=== PATIENT | female | born 1980 | race Caucasian/White ===

== ENCOUNTER 2016-09-07 15:56 | Emergency (ER) | payer SELFPAY ==
[2016-09-07 16:04] VITALS: BP 125/82; BMI 39.1
--- NOTE | 2016-09-07 17:29 | DR.GENAD ---
HPI - PCP Primary Care Physician: JEREMY - HPI Comment HPI Comment: PATIENT SAID SHE HAVE NOT HAD BM FOR 3 WEEKS.HISTORY BOWEL OBSTRUCTION. NO FEVER. MUSCLE ACHES. - Complaint/Symptoms Chief Complaint Doctors Comments: ABDOMIINAL PAIN, NAUSEA AND VOMITING WITH CONSTIPATION FOR FEW RAY[place]D. WORSE TODAY AND ALSO HAVE SEVERE MIGRAINE HEADACHE THAT STARTED TODAY. Chief Complaint:: MIGRAINES, NO BOWEL MOVEMENT IN 2 WEEKS, HURTING ALL OVER AND STOMACH HURTING - Nurses notes reviewed Nurses Notes Review: Yes - Source History Provided: Patient - Mode of Arrival Mode of Arrival: Ambulatory - Timing Onset of Chief Complaint: 08/24/16 Came on: Suddenly - Duration Duration: Constant Duration: Days - Severity Severity: Moderate PMH - PMH Past Medical History: Yes Past Medical History: Depression, Diabetes Past Medical History Comment: CHRONIC CONSTIPATION Past Surgical History: Yes Surgical History: Appendectomy, Cholecystectomy, 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 - Family History History of Family Medical Conditions: Yes Family Medical History: Diabetes Mellitus, [place], Hypertension - Social History Does any household member use tobacco: Yes Alcohol Use: None Do you use any recreational Drugs:: No Lives With: Family Lives Where: Home - infectious screening In the last 2 months have you had wt loss of >10#?: NO Have you had fever, night sweats or hemotysis?: No Have you traveled outside the country in the last 6 months?: No Isolation: Standard ROS - Review of Systems Constitutional: Weakness, Fatigue, Loss of Appetite. negative: Chills, Fever Eyes: No Symptoms Reported. negative: Eye Pain, Discharge ENTM: No Symptoms Reported. negative: Ear Pain, Nose Discharge, Nose Congestion , Throat Pain Respiratoy: No Symptoms Reported. negative: Productive Cough, Non-Productive Cough, Short of Breath, Wheezing, Hemoptysis Cardiovascular: negative: Chest Pain, Edema, Palpitations Gastrointestinal/Abdominal: Abdominal Pain, Constipation, Nausea, Vomiting. negative: Diarrhea Genitourinary: No Symptoms Reported. negative: Dysuria, Frequency, Hematuria Neurological: Headache, Weakness. negative: Dizziness Musculoskeletal: Muscle Pain Integumentary: No Symptoms Reported Hematologic/Lymphatic: No Symptoms Reported Endocrine: No Symptoms Reported All Other Systems: Reviewed and Negative PE - Vital Signs Vitals: Temperature 97.5 F Pulse Rate 108 Respiratory Rate 20 Blood Pressure 125/82 O2 Sat by Pulse Oximetry 96 - General Limitations: No Limitations General Appearance: Alert - Head Head Exam: Normal Inspection - Eyes Eye exam: Normal Appearance - ENT ENT Exam: Normal Oropharynx, Normal External Ear Exam, TM's Normal Bilaterally External Ear Exam: Normal External Inspection TM/Canal Exam: Bilateral Normal Nose Exam: Normal Nose Exam Mouth Exam: Normal Inspection Throat Exam: Normal Inspection - Neck Neck Exam: Trachea Midline. negative: Tenderness, Meningismus, Lymphadenopathy - Chest Chest Inspection: Symmetric Chest Wall Rise - Respiratory Respiratory Exam: Normal Lung Sounds Bilat Respiratory Exam: Bilateral Clear to Auscultation - Cardiovascular Cardiovascular Exam: Regular Rate, Normal Rhythm, Normal Heart Sounds - Abdominal Exam Abdominal Exam: Normal Bowel Sounds, Soft, Tenderness Abdominal Tenderness: Diffuse, Moderate - Extremities Extremities Exam: Normal Inspection - Back Back Exam: Normal Inspection - Neurologic Neurological Exam: Alert, Oriented X3, CN II-XII Intact, Reflexes Normal. negative: Motor Sensory Deficit - Psychiatric Psychiatric Exam: Normal Affect, Normal Mood - Skin Skin Exam: Normal Color MDM - Additional Information Additional Information Obtained From: Family - Differential Diagnosis Differential Diagnosis: ABDOMINAL PAIN, BOWEL OBSTRUCTION, MIGRAINE HEADACHE, CONSTIPATION Course - Treatment Treatment: SEE ORDERS. IM MED FOR HEADACHE, IMPROVE. - Education/Counseling Education/Counseling: Patient, Education Educated On: Treatment, Diagnosis, Needs for Follow Up ROR - Labs Reviewed Laboratory Results Reviewed?: Yes Result Diagrams: 09/07/16 17:48 09/07/16 17:48 Laboratory: WBC 8.0 X10^3/uL (3.6-10.0) 09/07/16 17:48 RBC 4.57 X10^6/uL (3.5-5.4) 09/07/16 17:48 Hgb 13.1 g/dL (12.0-16.0) 09/07/16 17:48 Hct 39.3 % (36.0-47.0) 09/07/16 17:48 MCV 85.9 fL (80.0-100.0) 09/07/16 17:48 MCH 28.6 pg (27.0-34.0) 09/07/16 17:48 MCHC 33.3 g/dL (33.0-35.0) 09/07/16 17:48 RDW 13.6 % (11.6-16.5) 09/07/16 17:48 Plt Count 255 X10^3/uL (150.0-450.0) 09/07/16 17:48 MPV 9.5 fL (7.4-11.0) 09/07/16 17:48 Neut % 80.6 % (42.0-75.0) H 09/07/16 17:48 Lymph % 14.5 % (21.0-51.0) L 09/07/16 17:48 [place] % 4.3 % (0.0-13.0) 09/07/16 17:48 Eos % 0.3 % (0.9-2.9) L 09/07/16 17:48 Baso % 0.3 % (0.2-1.0) 09/07/16 17:48 Neut # 6.5 x10^3/uL (2.2-4.8) H 09/07/16 17:48 Lymph # 1.2 X10^3/uL (1.3-2.9) L 09/07/16 17:48 [place] # 0.3 x10^3/uL (0.3-0.8) 09/07/16 17:48 Eos # 0.0 x10^3/uL (0.0-0.2) 09/07/16 17:48 Baso # 0.0 X10^3/uL (0.0-0.1) 09/07/16 17:48 Absolute Nucleated RBC 0.0 /100WBC 09/07/16 17:48 Sodium 142 mmol/L (136-145) 09/07/16 17:48 Corrected Sodium 142 mmol/L (136-145) 09/07/16 17:48 Potassium 4.5 mmol/L (3.5-5.1) 09/07/16 17:48 Chloride 105 mmol/L (98-107) 09/07/16 17:48 Carbon Dioxide 25.2 mmol/L (21-32) 09/07/16 17:48 BUN 13 mg/dL (7-18) 09/07/16 17:48 Creatinine 1.06 mg/dL (0.55-1.02) H 09/07/16 17:48 Est GFR (MDRD) Af Amer > 60 (>60) 09/07/16 17:48 Est GFR (MDRD) Non-Af > 60 (>60) 09/07/16 17:48 Glucose 119 mg/dL (65-99) H 09/07/16 17:48 Calcium 9.6 mg/dL (8.5-10.1) 09/07/16 17:48 Corrected Calcium TNP 09/07/16 17:48 Total Bilirubin 0.20 mg/dL (0.2-1.0) 09/07/16 17:48 AST 48 Units/L (15-37) H 09/07/16 17:48 ALT 80 Units/L (12-78) H 09/07/16 17:48 Alkaline Phosphatase 90 Units/L (46-116) 09/07/16 17:48 Total Protein 8.4 g/dL (6.4-8.2) H 09/07/16 17:48 Albumin 3.9 g/dL (3.4-5.0) 09/07/16 17:48 Globulin 4.5 g/dL (2.5-4.5) 09/07/16 17:48 Albumin/Globulin Ratio 0.9 Ratio (1.1-2.1) L 09/07/16 17:48 Amylase 65 Units/L (25-115) 09/07/16 17:48 Lipase 187 Units/L (73-393) 09/07/16 17:48 Specimen Type Clean catch urine 09/07/16 17:55 Urine Color Yellow (YELLOW) 09/07/16 17:55 Urine Appearance Clear (CLEAR) 09/07/16 17:55 Urine pH 9.0 (5.0 - 8.0) 09/07/16 17:55 Ur Specific [place] 1.015 (1.000-1.030) 09/07/16 17:55 Urine Protein Negative (NEGATIVE) 09/07/16 17:55 Urine Glucose (UA) Negative (NEGATIVE) 09/07/16 17:55 Urine Ketones Negative (NEGATIVE) 09/07/16 17:55 Urine Occult Blood Negative (NEGATIVE) 09/07/16 17:55 Urine Nitrite Negative (NEGATIVE) 09/07/16 17:55 Urine Bilirubin Negative (NEGATIVE) 09/07/16 17:55 Urine Urobilinogen Normal (NORMAL) 09/07/16 17:55 Ur Leukocyte Esterase 1+ (NEGATIVE) 09/07/16 17:55 Urine RBC 0-2 /HPF (NEGATIVE) 09/07/16 17:55 Urine WBC 0-2 /HPF (NEGATIVE) 09/07/16 17:55 Ur Squamous Epith Cells Negative /HPF (NEGATIVE) 09/07/16 17:55 Urine Bacteria Negative /HPF (NEGATIVE) 09/07/16 17:55 Ur Culture Indicated? No/not indicated 09/07/16 17:55 - XRAY XRAY Interpreted by: Radiologist XRAY Findings: REPORT DISCUSSWITH PATIENT. - Diagnosis Discharge Problem: Migraine headache - Discharge Plan Condition: Stable Prescriptions: [id number] [Fioricet Tab] 1 tab PO Q8H PRN #20 tab PRN Reason: Migraine Headache Magnesium Citrate [Magnesium Citrate 1.745 gm/30Ml] 1 levy PO ONCE #1 bottle Ondansetron HCl [Zofran Tab 4 mg] 4 mg PO Q8H PRN #12 tab PRN Reason: Nausea/Vomiting - Follow ups/Referrals Follow ups/Referrals: Timoteo Tello [Primary Care Provider] - 3 days - Instructions Instructions: Migraine Headache, Constipation, Adult, [id number], Abdominal Pain, Adult, [id number] Additional Instructions: RETURN TO ED IF WORSE,
[2016-09-07] MEDS ORDERED: ZOFRAN INJ 4 MG VIAL IM ONE (17:38)
[2016-09-07] MEDS ORDERED: DEMEROL INJ IM ONE (17:38)
[2016-09-07] MEDS ORDERED: DEMEROL INJ ONE (17:53)
[2016-09-07] MEDS ORDERED: ZOFRAN INJ 4 MG VIAL ONE (17:53)
[2016-09-07 18:01] LABS: BILIRUBIN,URINE NEGATIVE (NEGATIVE); BLOOD/HEMOGLOBIN,URINE NEGATIVE (NEGATIVE); GLUCOSE, URINE NEGATIVE (NEGATIVE); KETONES,URINE NEGATIVE (NEGATIVE); LEUKOCYTE ESTERASE ,URINE 1+ (NEGATIVE); NITRITES,URINE NEGATIVE (NEGATIVE); PROTEIN,URINE NEGATIVE (NEGATIVE); UROBILINOGEN,URINE NORMAL (NORMAL)
[2016-09-07 18:03] LABS: BASOPHILS % (AUTO) 0.3 % (0.2-1.0); EOSINOPHILS % (AUTO) 0.3 % (0.9-2.9); HEMATOCRIT 39.3 % (36.0-47.0); HEMOGLOBIN 13.1 g/dL (12.0-16.0); LYMPHOCYTES # (AUTO) 1.2 X10^3/uL (1.3-2.9); LYMPHOCYTES % (AUTO) 14.5 % (21.0-51.0); MEAN CORPUSCULAR HEMOGLOBIN 28.6 pg (27.0-34.0); MEAN CORPUSCULAR HGB CONC 33.3 g/dL (33.0-35.0); MEAN CORPUSCULAR VOLUME 85.9 fL (80.0-100.0); MEAN PLATELET VOLUME 9.5 fL (7.4-11.0); MONOCYTES # (AUTO) 0.3 x10^3/uL (0.3-0.8); MONOCYTES % (AUTO) 4.3 % (0.0-13.0); NEUTROPHILS # (AUTO) 6.5 x10^3/uL (2.2-4.8); NEUTROPHILS % (AUTO) 80.6 % (42.0-75.0); PLATELET COUNT 255 X10^3/uL (150.0-450.0); RED BLOOD COUNT 4.57 X10^6/uL (3.5-5.4); RED CELL DISTRIBUTION WIDTH 13.6 % (11.6-16.5)
[2016-09-07 18:09] LABS: APPEARANCE,URINE CLEAR (CLEAR); BACTERIA,URINE NEGATIVE /HPF (NEGATIVE); COLOR,URINE YELLOW (YELLOW); RBC,URINE 0-2 /HPF (NEGATIVE); SQUAMOUS EPITHELIAL CELL,UR NEGATIVE /HPF (NEGATIVE)
[2016-09-07 18:10] LABS: ALANINE AMINOTRANSFERASE 80 Units/L (12-78); ALBUMIN 3.9 g/dL (3.4-5.0); ALKALINE PHOSPHATASE 90 Units/L (46-116); AMYLASE 65 Units/L (25-115); ASPARTATE AMINO TRANSFERASE 48 Units/L (15-37); BLOOD UREA NITROGEN 13 mg/dL (7-18); CALCIUM 9.6 mg/dL (8.5-10.1); CARBON DIOXIDE 25.2 mmol/L (21-32); CHLORIDE 105 mmol/L (98-107); COR NA(FOR HYPERGLY) 142 mmol/L (136-145); CREATININE 1.06 mg/dL (0.55-1.02); GLUCOSE 119 mg/dL (65-99); LIPASE 187 Units/L (73-393); SODIUM 142 mmol/L (136-145); TOTAL PROTEIN 8.4 g/dL (6.4-8.2); eGFR BLACK RACES > 60 (>60); eGFR NON BLACK RACES > 60 (>60)
--- NOTE | 2016-09-07 18:58 | CT ---
CT abdomen and pelvis without contrast Indication: Headache. Abdominal pain with vomiting and nausea. Severe constipation. Technique: Helical images through the abdomen and pelvis without contrast. Coronal and sagittal refo rmats provided. Findings: Review of bone windows shows no destructive osseous lesion. Limited images through lower chest shows basilar scar without other acute abnormality. Abdomen: The liver is mildly enlarged without large lesion seen. Gallbladder is absent. The spleen, pancreas, adrenal glands, stomach and small bowel are within normal limits for noncontrast study. Ki dneys show no stone or hydroureteronephrosis. Vasculature is free of plaque. There is moderate stool throughout the colon suggesting constipation. No acute inflammatory change seen. The appendix is no t visualized, absent by history. Pelvis: Urinary bladder and rectum are normal. Uterus is absent. No adnexal region lesion seen. Impression: 1. Moderate to large stool in the colon, compatible with constipation. 2. No other acute abnormality identified. Reported By:
== END 2016-09-07 19:24 | disposition home or self-care (01) ==
LOC: ER 16:17
DX: G43.909 Migraine, unspecified, not intractable, without status migrainosus (principal); R10.84 Generalized abdominal pain
CPT/HCPCS: 36415; 74176; 80053; 81001; 82150; 83690; 85025; 96372; 99283; J2175; J2405

== ENCOUNTER 2016-09-09 19:06 | Emergency (ER) | payer SELFPAY ==
[2016-09-09 19:15] VITALS: BP 110/78; BMI 39.6
--- NOTE | 2016-09-09 19:25 | DR.GENAD ---
HPI - PCP Primary Care Physician: Omer - HPI Comment HPI Comment: SEEN IN ED 2 DAYS AGO AND HAD WORK UP FOR ABDOMINAL - Complaint/Symptoms Chief Complaint Doctors Comments: CHEST PAIN, TACHYCARDIA, HEADACHE AND WEAKNESS SINCE . Chief Complaint:: " I was just hear on my heart rate been high today and i feel weak got a headache and hurting in chest." - Nurses notes reviewed Nurses Notes Review: Yes - Source History Provided: Patient - Mode of Arrival Mode of Arrival: Ambulatory - Timing Onset of Chief Complaint: 09/06/16 Came on: Suddenly - Duration Duration: Constant Duration: Days - Severity Severity: Moderate PMH - PMH Past Medical History: Yes Past Medical History: Depression, Diabetes, Hypertension Past Surgical History: Yes Surgical History: Appendectomy, Cholecystectomy, 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 - Family History History of Family Medical Conditions: Yes Family Medical History: Diabetes Mellitus, [place], Hypertension - Social History Alcohol Use: None Do you use any recreational Drugs:: No Lives With: Family Lives Where: Home - infectious screening Have you traveled outside the country in the last 6 months?: No ROS - Review of Systems Constitutional: No Symptoms Reported, Weakness, Fatigue, Loss of Appetite. negative: See HPI, Fever Eyes: No Symptoms Reported. negative: Eye Pain, Discharge ENTM: No Symptoms Reported. negative: Ear Pain, Nose Discharge, Nose Congestion , Throat Pain Respiratoy: No Symptoms Reported. negative: Productive Cough, Non-Productive Cough, Wheezing, Hemoptysis Cardiovascular: No Symptoms Reported, Chest Pain, Palpitations. negative: Edema , Syncope Gastrointestinal/Abdominal: Abdominal Pain, Constipation. negative: Diarrhea, Nausea, Vomiting Genitourinary: No Symptoms Reported. negative: Dysuria, Frequency, Hematuria Neurological: Headache, Weakness, Dizziness Musculoskeletal: Muscle Pain Integumentary: No Symptoms Reported Hematologic/Lymphatic: No Symptoms Reported Endocrine: No Symptoms Reported All Other Systems: Reviewed and Negative PE - Vital Signs Vitals: Temperature 98.4 F Pulse Rate 111 Respiratory Rate 18 Blood Pressure 110/78 O2 Sat by Pulse Oximetry 97 - General Limitations: No Limitations General Appearance: Alert - Head Head Exam: Normal Inspection - Eyes Eye exam: Normal Appearance - ENT ENT Exam: Normal External Ear Exam External Ear Exam: Normal External Inspection TM/Canal Exam: Bilateral Normal Nose Exam: Normal Nose Exam Mouth Exam: Normal Inspection Throat Exam: Normal Inspection - Neck Neck Exam: Trachea Midline - Chest Chest Inspection: Symmetric Chest Wall Rise - Respiratory Respiratory Exam: Normal Lung Sounds Bilat Respiratory Exam: Bilateral Clear to Auscultation - Cardiovascular Cardiovascular Exam: Normal Rhythm, Tachycardia, Normal Heart Sounds - Abdominal Exam Abdominal Exam: Normal Bowel Sounds, Soft, Tenderness Abdominal Tenderness: Diffuse, Mild - Extremities Extremities Exam: Normal Inspection - Back Back Exam: Normal Inspection - Neurologic Neurological Exam: Alert, Oriented X3 - Psychiatric Psychiatric Exam: Normal Affect, Normal Mood - Skin Skin Exam: Normal Color [facility] - Additional Information Additional Information Obtained From: Family - Differential Diagnosis Differential Diagnosis: TACHYCARDIA, ABDOMINAL PAIN/CONSTIPATION, HEADACHE, CHEST PAIN Course - Treatment Treatment: SEE ORDERS - Education/Counseling Education/Counseling: Patient, Education Educated On: Treatment, Diagnosis, Needs for Follow Up ROR - Labs Reviewed Laboratory Results Reviewed?: Yes Result Diagrams: 09/09/16 19:45 09/09/16 19:45 Laboratory: WBC 7.0 X10^3/uL (3.6-10.0) 09/09/16 19:45 RBC 4.19 X10^6/uL (3.5-5.4) 09/09/16 19:45 Hgb 12.3 g/dL (12.0-16.0) 09/09/16 19:45 Hct 35.6 % (36.0-47.0) L 09/09/16 19:45 MCV 84.9 fL (80.0-100.0) 09/09/16 19:45 MCH 29.2 pg (27.0-34.0) 09/09/16 19:45 MCHC 34.4 g/dL (33.0-35.0) 09/09/16 19:45 RDW 13.2 % (11.6-16.5) 09/09/16 19:45 Plt Count 232 X10^3/uL (150.0-450.0) 09/09/16 19:45 MPV 9.2 fL (7.4-11.0) 09/09/16 19:45 Neut % 42.8 % (42.0-75.0) 09/09/16 19:45 Lymph % 37.9 % (21.0-51.0) 09/09/16 19:45 [place] % 14.4 % (0.0-13.0) H 09/09/16 19:45 Eos % 4.3 % (0.9-2.9) H 09/09/16 19:45 Baso % 0.6 % (0.2-1.0) 09/09/16 19:45 Neut # 3.0 x10^3/uL (2.2-4.8) 09/09/16 19:45 Lymph # 2.6 X10^3/uL (1.3-2.9) 09/09/16 19:45 [place] # 1.0 x10^3/uL (0.3-0.8) H 09/09/16 19:45 Eos # 0.3 x10^3/uL (0.0-0.2) H 09/09/16 19:45 Baso # 0.0 X10^3/uL (0.0-0.1) 09/09/16 19:45 Absolute Nucleated RBC 0.1 /100WBC 09/09/16 19:45 D-Dimer 501 ng/mL (0-400) H* 09/09/16 19:45 Sodium 138 mmol/L (136-145) 09/09/16 19:45 Corrected Sodium TNP 09/09/16 19:45 Potassium 4.4 mmol/L (3.5-5.1) 09/09/16 19:45 Chloride 103 mmol/L (98-107) 09/09/16 19:45 Carbon Dioxide 25.7 mmol/L (21-32) 09/09/16 19:45 BUN 17 mg/dL (7-18) 09/09/16 19:45 Creatinine 0.96 mg/dL (0.55-1.02) 09/09/16 19:45 Est GFR (MDRD) Af Amer > 60 (>60) 09/09/16 19:45 Est GFR (MDRD) Non-Af > 60 (>60) 09/09/16 19:45 Glucose 107 mg/dL (65-99) H 09/09/16 19:45 Calcium 9.3 mg/dL (8.5-10.1) 09/09/16 19:45 Corrected Calcium TNP 09/09/16 19:45 Total Bilirubin 0.20 mg/dL (0.2-1.0) 09/09/16 19:45 AST 100 Units/L (15-37) H 09/09/16 19:45 ALT 129 Units/L (12-78) H 09/09/16 19:45 Alkaline Phosphatase 96 Units/L (46-116) 09/09/16 19:45 Creatine Kinase 97 Units/L (26-192) 09/09/16 19:45 CK-MB (CK-2) < 1.0 ng/mL (0-4.0) 09/09/16 19:45 CK/CKMB % Calc 1.0 % (<4) 09/09/16 19:45 Troponin I < 0.02 ng/mL (0-1.5) 09/09/16 19:45 B-Natriuretic Peptide < 5.0 pg/mL (0-79) 09/09/16 19:45 Total Protein 8.1 g/dL (6.4-8.2) 09/09/16 19:45 Albumin 3.8 g/dL (3.4-5.0) 09/09/16 19:45 Globulin 4.3 g/dL (2.5-4.5) 09/09/16 19:45 Albumin/Globulin Ratio 0.9 Ratio (1.1-2.1) L 09/09/16 19:45 Specimen Type Clean catch urine 09/09/16 19:49 Urine Color Straw (YELLOW) 09/09/16 19:49 Urine Appearance Clear (CLEAR) 09/09/16 19:49 Urine pH 7.0 (5.0 - 8.0) 09/09/16 19:49 Ur Specific [place] 1.005 (1.000-1.030) 09/09/16 19:49 Urine Protein Negative (NEGATIVE) 09/09/16 19:49 Urine Glucose (UA) Negative (NEGATIVE) 09/09/16 19:49 Urine Ketones Negative (NEGATIVE) 09/09/16 19:49 Urine Occult Blood Negative (NEGATIVE) 09/09/16 19:49 Urine Nitrite Negative (NEGATIVE) 09/09/16 19:49 Urine Bilirubin Negative (NEGATIVE) 09/09/16 19:49 Urine Urobilinogen Normal (NORMAL) 09/09/16 19:49 Ur Leukocyte Esterase Negative (NEGATIVE) 09/09/16 19:49 Urine RBC 0-1 /HPF (NEGATIVE) 09/09/16 19:49 Urine WBC 1-3 /HPF (NEGATIVE) 09/09/16 19:49 Ur Squamous Epith Cells Rare /HPF (NEGATIVE) 09/09/16 19:49 Urine Bacteria Negative /HPF (NEGATIVE) 09/09/16 19:49 Ur Culture Indicated? No/not indicated 09/09/16 19:49 - XRAY XRAY Interpreted by: Radiologist XRAY Findings: REPORT DISCUSS WITH PATIENT. - EKG Rhythm: ST (EKGNOTED) - Diagnosis Discharge Problem: Tachycardia Chest pain Qualifiers: Chest pain type: precordial pain Qualified Code(s): R07.2 - Precordial pain Headache Qualifiers: Headache type: paroxysmal hemicrania Headache chronicity pattern: unspecified pattern Intractability: intractable Qualified Code(s): G44.031 - Episodic paroxysmal hemicrania, intractable Abdominal pain Qualifiers: Abdominal location: generalized Qualified Code(s): R10.84 - Generalized abdominal pain Constipation Qualifiers: Constipation type: unspecified constipation type Qualified Code(s): K59.00 - Constipation, unspecified - Discharge Plan Disposition: HOME, SELF-CARE Condition: Stable - Follow ups/Referrals Follow ups/Referrals: Timoteo Tello [Primary Care Provider] - 09/11/16 - Instructions Instructions: Chest Pain Observation, Migraine Headache Additional Instructions: RETURN TO ED IF WORSE. CONTINUE WITH MEDS AT HOME FOR HEADACHE.
[2016-09-09 19:59] LABS: BASOPHILS % (AUTO) 0.6 % (0.2-1.0); EOSINOPHILS # (AUTO) 0.3 x10^3/uL (0.0-0.2); EOSINOPHILS % (AUTO) 4.3 % (0.9-2.9); HEMATOCRIT 35.6 % (36.0-47.0); HEMOGLOBIN 12.3 g/dL (12.0-16.0); LYMPHOCYTES # (AUTO) 2.6 X10^3/uL (1.3-2.9); LYMPHOCYTES % (AUTO) 37.9 % (21.0-51.0); MEAN CORPUSCULAR HEMOGLOBIN 29.2 pg (27.0-34.0); MEAN CORPUSCULAR HGB CONC 34.4 g/dL (33.0-35.0); MEAN CORPUSCULAR VOLUME 84.9 fL (80.0-100.0); MEAN PLATELET VOLUME 9.2 fL (7.4-11.0); MONOCYTES % (AUTO) 14.4 % (0.0-13.0); NEUTROPHILS % (AUTO) 42.8 % (42.0-75.0); PLATELET COUNT 232 X10^3/uL (150.0-450.0); RED BLOOD COUNT 4.19 X10^6/uL (3.5-5.4); RED CELL DISTRIBUTION WIDTH 13.2 % (11.6-16.5)
[2016-09-09 20:00] LABS: BILIRUBIN,URINE NEGATIVE (NEGATIVE); BLOOD/HEMOGLOBIN,URINE NEGATIVE (NEGATIVE); GLUCOSE, URINE NEGATIVE (NEGATIVE); KETONES,URINE NEGATIVE (NEGATIVE); LEUKOCYTE ESTERASE ,URINE NEGATIVE (NEGATIVE); NITRITES,URINE NEGATIVE (NEGATIVE); PROTEIN,URINE NEGATIVE (NEGATIVE); UROBILINOGEN,URINE NORMAL (NORMAL)
[2016-09-09 20:01] LABS: APPEARANCE,URINE CLEAR (CLEAR); COLOR,URINE STRAW (YELLOW)
[2016-09-09 20:04] LABS: BACTERIA,URINE NEGATIVE /HPF (NEGATIVE); RBC,URINE 0-1 /HPF (NEGATIVE); SQUAMOUS EPITHELIAL CELL,UR RARE /HPF (NEGATIVE)
[2016-09-09 20:12] LABS: BLOOD UREA NITROGEN 17 mg/dL (7-18); CALCIUM 9.3 mg/dL (8.5-10.1); CARBON DIOXIDE 25.7 mmol/L (21-32); CHLORIDE 103 mmol/L (98-107); CREATININE 0.96 mg/dL (0.55-1.02); GLUCOSE 107 mg/dL (65-99); SODIUM 138 mmol/L (136-145); TROPONIN I < 0.02 ng/mL (0-1.5); eGFR BLACK RACES > 60 (>60); eGFR NON BLACK RACES > 60 (>60)
[2016-09-09 20:15] LABS: ALANINE AMINOTRANSFERASE 129 Units/L (12-78); ALBUMIN 3.8 g/dL (3.4-5.0); ALKALINE PHOSPHATASE 96 Units/L (46-116); ASPARTATE AMINO TRANSFERASE 100 Units/L (15-37); CREATINE KINASE 97 Units/L (26-192); CREATINE KINASE MB < 1.0 ng/mL (0-4.0); TOTAL PROTEIN 8.1 g/dL (6.4-8.2)
[2016-09-09 20:18] LABS: B-TYPE NATRIURETIC PEPTIDE < 5.0 pg/mL (0-79)
[2016-09-09] MEDS ORDERED: ZOFRAN INJ 4 MG VIAL IVP ONE (20:51)
[2016-09-09] MEDS ORDERED: ZOFRAN INJ 4 MG VIAL ONE (20:56)
[2016-09-09] MEDS ORDERED: TORADOL 30 MG VIAL IVP ONE (20:57)
[2016-09-09] MEDS ORDERED: TORADOL 30 MG VIAL ONE (20:57)
[2016-09-09] MEDS ORDERED: NS 100 ML IV 100 ML IV ONE (21:03)
--- NOTE | 2016-09-09 21:19 | RAD ---
HISTORY: Chest pain Study: Single view of the chest. Comparison: None. Findings: The cardiomediastinal silhouette is normal. No focal consolidations, pleural effusions or pneumothor ax. Osseous structures demonstrate no acute abnormality. IMPRESSION: 1. No acute cardiopulmonary process. Reported By:
--- NOTE | 2016-09-09 21:44 | CT ---
EXAM: CTA CHEST WITH CONTRAST INDICATION: Chest pain COMPARISION: No priors for comparison TECHNIQUE: Spiral CT of the chest was performed with contrast. Thin reconstructions in the axial and para-coron al planes were obtained. The patient received intravenous contrast without adverse reaction. FINDINGS: Areas of atelectasis and or scarring noted in both lungs. No mass or consolidation. The heart size i s within normal limits. There is a small hiatal hernia. No mediastinal or hilar mass or adenopathy. No aortic aneurysm or dissection. No pulmonary embolism. The regional skeleton is intact. IMPRESSION: There is a small hiatal hernia. Areas of scarring and or atelectasis noted in both lungs. No pulmona ry embolism. Reported By:
== END 2016-09-09 22:05 | disposition home or self-care (01) ==
LOC: ER 19:06
DX: R00.0 Tachycardia, unspecified (principal); R07.89 Other chest pain; R07.2 Precordial pain; G44.031 Episodic paroxysmal hemicrania, intractable; R10.84 Generalized abdominal pain; K59.09 Other constipation
CPT/HCPCS: 36415; 71010; 71275; 80053; 81001; 82550; 82553; 83880; 84484; 85025; 85378; 93005; 93010; 96365; 96374; 96375; 99283; A4222; J1885; J2405

== ENCOUNTER 2016-09-11 08:47 | Emergency (ER) | payer SELFPAY ==
[2016-09-11 08:51] VITALS: BP 129/83; BMI 39.6
[2016-09-11] MEDS ORDERED: PHENERGAN INJ 25 MG IM ONE (09:20)
[2016-09-11] MEDS ORDERED: DEMEROL INJ IM ONE (09:20)
--- NOTE | 2016-09-11 09:21 | DR.GENAD ---
HPI - PCP Primary Care Physician: ROCÍO - HPI Comment HPI Comment: HERE IN ED SEVERAL TIMES FOR SIMILAR SYMTOMS. NOT GETTING BETTER. TOOK MAGNESIUM CITRATE TWICE AND ENEMA WITHOUT RESPONSE. STILL CONSTIPATED. - Complaint/Symptoms Chief Complaint Doctors Comments: GENERALIZE WEAKNESS, HEADACHE, TACHYCARDIA AND CONSTIPATION FOR SEVERAL DAYS. NOT IMPROVING. GLUCOSE 200 THIS AM. Chief Complaint:: PT. C/O HEART RATE BEING HIGH WELL HER BLOOD SUGAR. PT. STATES HER HEART RATE WAS 130 AT HOME AND BLOOD SUGAR WAS 200. PT. ALSO C/O GENERALIZED PAIN, HEADACHE, AND WEAKNESS. PT. STATES SHE STILL HAS NOT HAD A GOOD BOWEL MOVEMENT EVEN AFTER TAKING MAG. CITRATE, ENEMAS, AND SUPPOSITORIES. 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, 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 - Family History History of Family Medical Conditions: Yes Family Medical History: Diabetes Mellitus, [place], Hypertension - Social History Does patient currently use any type of tobacco product: No Have you used tobacco products in the last 12 months: No Type of Tobacco Use: None Does any household member use tobacco: No Alcohol Use: None Do you use any recreational Drugs:: No Lives With: Spouse Lives Where: Home - infectious screening In the last 2 months have you had wt loss of >10#?: NO Have you had fever, night sweats or hemotysis?: No Have you traveled outside the country in the last 6 months?: No Isolation: Standard ROS - Review of Systems Constitutional: Weakness, Fatigue. negative: Chills, Fever Eyes: No Symptoms Reported ENTM: No Symptoms Reported Respiratoy: Short of Breath. negative: Productive Cough, Non-Productive Cough, Wheezing, Hemoptysis Cardiovascular: Palpitations Gastrointestinal/Abdominal: Abdominal Pain, Nausea Neurological: Headache, Weakness Musculoskeletal: No Symptoms Reported Integumentary: No Symptoms Reported Hematologic/Lymphatic: No Symptoms Reported Endocrine: No Symptoms Reported All Other Systems: Reviewed and Negative PE - Vital Signs Vitals: Temperature 98.2 F Pulse Rate 125 Respiratory Rate 18 Blood Pressure 129/83 O2 Sat by Pulse Oximetry 99 - General Limitations: No Limitations General Appearance: Alert - Head Head Exam: Normal Inspection - Eyes Eye exam: Normal Appearance - ENT ENT Exam: Normal External Ear Exam External Ear Exam: Normal External Inspection TM/Canal Exam: Bilateral Normal Nose Exam: Normal Nose Exam Mouth Exam: Normal Inspection Throat Exam: Normal Inspection - Neck Neck Exam: Trachea Midline - Chest Chest Inspection: Symmetric Chest Wall Rise - Respiratory Respiratory Exam: Normal Lung Sounds Bilat Respiratory Exam: Bilateral Clear to Auscultation - Cardiovascular Cardiovascular Exam: Regular Rate, Normal Rhythm, Normal Heart Sounds - Abdominal Exam Abdominal Exam: Normal Bowel Sounds, Soft, Tenderness Abdominal Tenderness: Diffuse, Mild - Extremities Extremities Exam: Normal Inspection - Back Back Exam: Normal Inspection - Neurologic Neurological Exam: Alert, Oriented X3 - Psychiatric Psychiatric Exam: Anxious - Skin Skin Exam: Normal Color MDM - Additional Information Additional Information Obtained From: Family - Differential Diagnosis Differential Diagnosis: TACHYCARDIA, ABDOMINAL PAIN, CONSTIPATION, MIGRAINE HEADACHE Course - Treatment Treatment: SEE ORDERS. MED FOR HEADACHE, PAIN IMPROVE. - Consultation Consultation Comments: DR. ALFORD WILL SEE PT SUNDAY. HE WANT COLACE, MOM AND MIRALAX PRISCRIBE. - Education/Counseling Education/Counseling: Patient, Family, Education Educated On: Treatment, Diagnosis, Needs for Follow Up ROR - Labs Reviewed Laboratory Results Reviewed?: Yes Result Diagrams: 09/11/16 09:26 09/11/16 09:26 Laboratory: WBC 12.2 X10^3/uL (3.6-10.0) H 09/11/16 09:26 RBC 4.02 X10^6/uL (3.5-5.4) 09/11/16 09:26 Hgb 11.3 g/dL (12.0-16.0) L 09/11/16 09:26 Hct 34.5 % (36.0-47.0) L 09/11/16 09:26 MCV 85.9 fL (80.0-100.0) 09/11/16 09:26 MCH 28.2 pg (27.0-34.0) 09/11/16 09:26 MCHC 32.9 g/dL (33.0-35.0) L 09/11/16 09:26 RDW 13.3 % (11.6-16.5) 09/11/16 09:26 Plt Count 210 X10^3/uL (150.0-450.0) 09/11/16 09: MPV 9.4 fL (7.4-11.0) 09/11/16 09: Neut % 76.2 % (42.0-75.0) H 09/11/16 09: Lymph % 8.6 % (21.0-51.0) L 09/11/16 09: [place] % 13.8 % (0.0-13.0) H 09/11/16 09:26 Eos % 1.1 % (0.9-2.9) 09/11/16 09: Baso % 0.3 % (0.2-1.0) 09/11/16: Neut # 9.3 x10^3/uL (2.2-4.8) H 09/11/16 09: Lymph # 1.0 X10^3/uL (1.3-2.9) L 09/11/16 09: [place] # 1.7 x10^3/uL (0.3-0.8) H 09/11/16 09: Eos # 0.1 x10^3/uL (0.0-0.2) 09/11/16 09: Baso # 0.0 X10^3/uL (0.0-0.1) 09/11/16 09: Absolute Nucleated RBC 0.0 /100WBC 09/11/16 09:26 Sodium 138 mmol/L (136-145) 09/11/16 09:26 Corrected Sodium TNP 09/11/16 09:26 Potassium 4.5 mmol/L (3.5-5.1) 09/11/16 09: Chloride 103 mmol/L (98-107) 09/11/16 09:26 Carbon Dioxide 26.9 mmol/L (21-32) 09/11/16 09:26 BUN 14 mg/dL (7-18) 09/11/16 09:26 Creatinine 0.98 mg/dL (0.55-1.02) 09/11/16 09:26 Est GFR (MDRD) Af Amer > 60 (>60) 09/11/16 09:26 Est GFR (MDRD) Non-Af > 60 (>60) 09/11/16 09:26 Glucose 94 mg/dL (65-99) 09/11/16 09:26 Calcium 9.6 mg/dL (8.5-10.1) 09/11/16 09:26 Corrected Calcium TNP 09/11/16 09:26 Total Bilirubin 0.30 mg/dL (0.2-1.0) 09/11/16 09:26 AST 125 Units/L (15-37) H 09/11/16 09:26 ALT 156 Units/L (12-78) H 09/11/16 09:26 Alkaline Phosphatase 99 Units/L (46-116) 09/11/16 09:26 Creatine Kinase 76 Units/L (26-192) 09/11/16 09:26 CK-MB (CK-2) < 1.0 ng/mL (0-4.0) 09/11/16 09:26 CK/CKMB % Calc 1.3 % (<4) 09/11/16 09:26 Troponin I < 0.02 ng/mL (0-1.5) 09/11/16 09:26 Total Protein 7.8 g/dL (6.4-8.2) 09/11/16 09:26 Albumin 3.6 g/dL (3.4-5.0) 09/11/16 09:26 Globulin 4.2 g/dL (2.5-4.5) 09/11/16 09:26 Albumin/Globulin Ratio 0.9 Ratio (1.1-2.1) L 09/11/16 09:26 TSH 3rd Generation 1.176 uIU/mL (0.358-3.74) 09/11/16 09:26 - XRAY XRAY Interpreted by: Radiologist XRAY Findings: REPORT DISCUSS WITH PATIENT. 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, intractable Constipation Qualifiers: Constipation type: unspecified constipation type Qualified Code(s): K59.00 - Constipation, unspecified Sinusitis Qualifiers: Sinusitis location: frontal Chronicity: unspecified Qualified Code(s): J32.1 - Chronic frontal sinusitis - Discharge Plan Disposition: 01 HOME, SELF-CARE Condition: Stable Prescriptions: Amoxicillin & Pot Clavulanate [AUGMENTIN TAB 875 mg/125 mg *] 1 tab PO BID #20 tab Docusate Sodium [Colace Cap 100 mg] 100 mg PO BID PRN #60 cap PRN Reason: Constipation Magnesium Hydroxide [Milk of Magnesia] 10 ml PO TID PRN #240 oral.susp PRN Reason: Polyethylene Glycol Pwd Ud [MIRALAX POWDER (17 GM DOSE) *] 17 gm PO DAILY PRN # 14 anuradha PRN Reason: Constipation - Follow ups/Referrals Follow ups/Referrals: Timoteo Alford [Primary Care Provider] - 3 days - Instructions Instructions: Migraine Headache, [id number], Weakness, [id number], Constipation, Adult, [id number], Sinus Tachycardia Additional Instructions: RETURN TO ED IF WORSE.
[2016-09-11] MEDS ORDERED: DEMEROL INJ ONE (09:24)
[2016-09-11] MEDS ORDERED: PHENERGAN INJ 25 MG ONE (09:24)
[2016-09-11 09:42] LABS: BASOPHILS % (AUTO) 0.3 % (0.2-1.0); EOSINOPHILS # (AUTO) 0.1 x10^3/uL (0.0-0.2); EOSINOPHILS % (AUTO) 1.1 % (0.9-2.9); HEMATOCRIT 34.5 % (36.0-47.0); HEMOGLOBIN 11.3 g/dL (12.0-16.0); LYMPHOCYTES % (AUTO) 8.6 % (21.0-51.0); MEAN CORPUSCULAR HEMOGLOBIN 28.2 pg (27.0-34.0); MEAN CORPUSCULAR HGB CONC 32.9 g/dL (33.0-35.0); MEAN CORPUSCULAR VOLUME 85.9 fL (80.0-100.0); MEAN PLATELET VOLUME 9.4 fL (7.4-11.0); MONOCYTES # (AUTO) 1.7 x10^3/uL (0.3-0.8); MONOCYTES % (AUTO) 13.8 % (0.0-13.0); NEUTROPHILS # (AUTO) 9.3 x10^3/uL (2.2-4.8); NEUTROPHILS % (AUTO) 76.2 % (42.0-75.0); PLATELET COUNT 210 X10^3/uL (150.0-450.0); RED BLOOD COUNT 4.02 X10^6/uL (3.5-5.4); RED CELL DISTRIBUTION WIDTH 13.3 % (11.6-16.5); WHITE BLOOD COUNT 12.2 X10^3/uL (3.6-10.0)
--- NOTE | 2016-09-11 09:59 | RAD ---
HISTORY: Chest pain Study: Chest one view Comparison: September 09, 2016 Findings: The trachea is midline. The cardiac silhouette is unremarkable. Lungs are free of acute infiltrate s. There is minimal perihilar subsegmental atelectasis on the right. No pleural effusions are identi fied.. The bony thorax is unremarkable. IMPRESSION: 1. No acute cardiopulmonary disease. Reported By:
--- NOTE | 2016-09-11 10:00 | RAD ---
HISTORY: Abdominal pain, constipation Study: KUB Comparison: None Findings: Evaluation of the abdomen demonstrates a normal bowel gas pattern. there is a large amount of stool present throughout the entire colon. No pathological soft tissue mass or calcification can be obser gabino. The bony structures are grossly intact. IMPRESSION: 1. No evidence for acute abdominal pathology identified. 2. Marked constipation Reported By:
[2016-09-11 10:01] LABS: BLOOD UREA NITROGEN 14 mg/dL (7-18); CALCIUM 9.6 mg/dL (8.5-10.1); CARBON DIOXIDE 26.9 mmol/L (21-32); CHLORIDE 103 mmol/L (98-107); CREATININE 0.98 mg/dL (0.55-1.02); GLUCOSE 94 mg/dL (65-99); SODIUM 138 mmol/L (136-145); TROPONIN I < 0.02 ng/mL (0-1.5); eGFR BLACK RACES > 60 (>60); eGFR NON BLACK RACES > 60 (>60)
[2016-09-11 10:05] LABS: ALANINE AMINOTRANSFERASE 156 Units/L (12-78); ALBUMIN 3.6 g/dL (3.4-5.0); ALKALINE PHOSPHATASE 99 Units/L (46-116); ASPARTATE AMINO TRANSFERASE 125 Units/L (15-37); CKMB % 1.3 % (<4); CREATINE KINASE 76 Units/L (26-192); CREATINE KINASE MB < 1.0 ng/mL (0-4.0); TOTAL PROTEIN 7.8 g/dL (6.4-8.2); TSH (3RD GENERATION) 1.176 uIU/mL (0.358-3.74)
--- NOTE | 2016-09-11 10:05 | CT ---
HISTORY: Headache. Study: CT brain without contrast Comparison: None. Technique: Multiple axial images of the brain were obtained from the skull base to the vertex without administr ation of IV contrast. Dose reduction techniques including Automated Exposure Control (AEC) and adju stment of mA and kV were utilized. Findings: No acute intraparenchymal hemorrhage or mass can be identified. No extra-axial fluid collections ar e seen. No alteration in the attenuation of the brain parenchyma can be identified to suggest acute or subacute ischemic change. The ventricular system is symmetric and nondilated. Mild/moderate mu cosal thickening of the right frontal sinus. Remaining paranasal sinuses and mastoid air cells are c lear. The osseous structures are intact. IMPRESSION: 1. No acute intracranial process can be identified. 2. Sinus disease as above. Reported By:
[2016-09-11] MEDS ORDERED: CHRONULAC PO ONE (10:32)
== END 2016-09-11 11:05 | disposition home or self-care (01) ==
LOC: ER 08:53
DX: G44.031 Episodic paroxysmal hemicrania, intractable (principal); K59.00 Constipation, unspecified; J32.1 Chronic frontal sinusitis; R00.0 Tachycardia, unspecified
CPT/HCPCS: 36415; 70450; 71010; 74000; 80053; 82550; 82553; 84443; 84484; 85025; 93005; 93010; 96372; 99283; J2175; J2550

== ENCOUNTER 2016-09-19 11:42 | Emergency (ER) | payer SELFPAY ==
[2016-09-19 11:50] VITALS: BP 108/76; BMI 39.1
--- NOTE | 2016-09-19 11:59 | DR.GENAD ---
HPI - PCP Primary Care Physician: nika - Complaint/Symptoms Chief Complaint:: " I have gotten worse with my broncotis since sunday and I think I have nemonia and marilin said if i didnt get no better he was going to put me in the hospital" - Nurses notes reviewed Nurses Notes Review: Yes - Source History Provided: Patient - Mode of Arrival Mode of Arrival: Ambulatory - Timing Onset of Chief Complaint: 09/15/16 Came on: Gradually - Duration How lon Duration: Days - Location Location: lungs - Severity Severity: Moderate - Modifying Factors Worsens:: exertion - Associated Signs and Symptoms Associated Signs and Symptoms: cough PMH - PMH Past Medical History: Yes Past Medical History: Anemia, Depression, Diabetes, Dyslipidemia, Headaches, Hypertension Past Surgical History: Yes Surgical History: Appendectomy, Cholecystectomy, 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, 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 - Family History History of Family Medical Conditions: Yes Family Medical History: Diabetes Mellitus, [place], Hypertension - Social History Does patient currently use any type of tobacco product: No Have you used tobacco products in the last 12 months: No Type of Tobacco Use: None Does any household member use tobacco: No Alcohol Use: None Do you use any recreational Drugs:: No Lives With: Spouse Lives Where: Home - infectious screening In the last 2 months have you had wt loss of >10#?: NO Have you had fever, night sweats or hemotysis?: No Have you traveled outside the country in the last 6 months?: No Isolation: Standard ROS - Review of Systems Constitutional: Fever Eyes: No Symptoms Reported ENTM: No Symptoms Reported Respiratoy: Non-Productive Cough Cardiovascular: No Symptoms Reported Gastrointestinal/Abdominal: No Symptoms Reported Genitourinary: No Symptoms Reported Neurological: No Symptoms Reported Musculoskeletal: No Symptoms Reported Integumentary: No Symptoms Reported Hematologic/Lymphatic: No Symptoms Reported Endocrine: No Symptoms Reported Psychiatric: Depression PE - Vital Signs Vitals: Temperature 97.9 F Pulse Rate 71 Respiratory Rate 18 Blood Pressure 108/76 O2 Sat by Pulse Oximetry 98 - General Limitations: No Limitations General Appearance: Alert, In No Apparent Distress - Head Head Exam: Normal Inspection - Eyes Eye exam: Normal Appearance, EOMI. negative: Scleral Icterus, Conjunctival Injection - ENT ENT Exam: Normal Exam, Normal Oropharynx External Ear Exam: Normal External Inspection Throat Exam: Normal Inspection. negative: Tonsillar Erythema - Neck Neck Exam: Normal Inspection, Full ROM, Trachea Midline - Chest Chest Inspection: Normal Inspection - Respiratory Respiratory Exam: Normal Lung Sounds Bilat. negative: Accessory Muscle Use, Respiratory Distress Respiratory Exam: Bilateral Clear to Auscultation - Cardiovascular Cardiovascular Exam: Regular Rate - Extremities Extremities Exam: Normal Inspection, Full ROM - Back Back Exam: Normal Inspection - Neurologic Neurological Exam: Alert, Oriented X3, CN II-XII Intact - Psychiatric Psychiatric Exam: Depressed - Skin Skin Exam: Intact, Normal Color ROR - Labs Reviewed Result Diagrams: 09/19/16 12:27 09/19/16 12:27 Laboratory: WBC 8.6 X10^3/uL (3.6-10.0) 09/19/16 12:27 RBC 4.29 X10^6/uL (3.5-5.4) 09/19/16 12:27 Hgb 12.3 g/dL (12.0-16.0) 09/19/16 12:27 Hct 36.7 % (36.0-47.0) 09/19/16 12:27 MCV 85.6 fL (80.0-100.0) 09/19/16 12:27 MCH 28.7 pg (27.0-34.0) 09/19/16 12:27 MCHC 33.5 g/dL (33.0-35.0) 09/19/16 12:27 RDW 14.0 % (11.6-16.5) 09/19/16 12:27 Plt Count 279 X10^3/uL (150.0-450.0) 09/19/16 12:27 Plt Count Comment Adequate (ADEQUATE) 09/19/16 12:27 MPV 8.5 fL (7.4-11.0) 09/19/16 12:27 Neut % 62.3 % (42.0-75.0) 09/19/16 12:27 Lymph % 24.5 % (21.0-51.0) 09/19/16 12:27 [place] % 9.6 % (0.0-13.0) 09/19/16 12:27 Eos % 3.1 % (0.9-2.9) H 09/19/16 12:27 Baso % 0.5 % (0.2-1.0) 09/19/16 12:27 Neut # 5.3 x10^3/uL (2.2-4.8) H 09/19/16 12:27 Lymph # 2.1 X10^3/uL (1.3-2.9) 09/19/16 12:27 [place] # 0.8 x10^3/uL (0.3-0.8) 09/19/16 12:27 Eos # 0.3 x10^3/uL (0.0-0.2) H 09/19/16 12:27 Baso # 0.0 X10^3/uL (0.0-0.1) 09/19/16 12:27 Absolute Nucleated RBC 0.0 /100WBC 09/19/16 12:27 Total Counted 100 09/19/16 12:27 Neutrophils % (Manual) 58 % (39-76) 09/19/16 12:27 Lymphocytes % (Manual) 32 % (13-43) 09/19/16 12:27 Monocytes % (Manual) 6 % (4-9) 09/19/16 12:27 Eosinophils % (Manual) 4 % (0-6) 09/19/16 12:27 Plt Morphology Comment Normal (NORMAL) 09/19/16 12:27 RBC Morphology Normal (NORMAL) 09/19/16 12:27 Sodium 138 mmol/L (136-145) 09/19/16 12:27 Corrected Sodium TNP 09/19/16 12:27 Potassium 4.0 mmol/L (3.5-5.1) 09/19/16 12:27 Chloride 102 mmol/L (98-107) 09/19/16 12:27 Carbon Dioxide 27.2 mmol/L (21-32) 09/19/16 12:27 BUN 14 mg/dL (7-18) 09/19/16 12:27 Creatinine 0.92 mg/dL (0.55-1.02) 09/19/16 12:27 Est GFR (MDRD) Af Amer > 60 (>60) 09/19/16 12:27 Est GFR (MDRD) Non-Af > 60 (>60) 09/19/16 12:27 Glucose 108 mg/dL (65-99) H 09/19/16 12:27 Calcium 9.4 mg/dL (8.5-10.1) 09/19/16 12:27 Specimen Type Clean catch urine 09/19/16 12:29 Urine Color Yellow (YELLOW) 09/19/16 12:29 Urine Appearance Clear (CLEAR) 09/19/16 12:29 Urine pH 7.0 (5.0 - 8.0) 09/19/16 12:29 Ur Specific [place] 1.010 (1.000-1.030) 09/19/16 12:29 Urine Protein Negative (NEGATIVE) 09/19/16 12:29 Urine Glucose (UA) Negative (NEGATIVE) 09/19/16 12:29 Urine Ketones Negative (NEGATIVE) 09/19/16 12:29 Urine Occult Blood Negative (NEGATIVE) 09/19/16 12:29 Urine Nitrite Negative (NEGATIVE) 09/19/16 12:29 Urine Bilirubin Negative (NEGATIVE) 09/19/16 12:29 Urine Urobilinogen Normal (NORMAL) 09/19/16 12:29 Ur Leukocyte Esterase Negative (NEGATIVE) 09/19/16 12:29 Urine RBC 0 /HPF (NEGATIVE) 09/19/16 12:29 Urine WBC 0 /HPF (NEGATIVE) 09/19/16 12:29 Ur Squamous Epith Cells Few /HPF (NEGATIVE) 09/19/16 12:29 Urine Bacteria Trace /HPF (NEGATIVE) 09/19/16 12:29 Ur Culture Indicated? No/not indicated 09/19/16 12:29 - XRAY XRAY Interpreted by: Radiologist XRAY Findings: chest: scarring - Diagnosis Discharge Problem: Bronchitis - Discharge Plan Condition: Stable Prescriptions: Prednisone 20 mg PO BID #10 tab - Follow ups/Referrals Follow ups/Referrals: Timoteo Tello [Primary Care Provider] - 3 days - Instructions Instructions: Acute Bronchitis, [id number]
[2016-09-19 12:35] LABS: BASOPHILS % (AUTO) 0.5 % (0.2-1.0); EOSINOPHILS # (AUTO) 0.3 x10^3/uL (0.0-0.2); EOSINOPHILS % (AUTO) 3.1 % (0.9-2.9); HEMATOCRIT 36.7 % (36.0-47.0); HEMOGLOBIN 12.3 g/dL (12.0-16.0); LYMPHOCYTES # (AUTO) 2.1 X10^3/uL (1.3-2.9); LYMPHOCYTES % (AUTO) 24.5 % (21.0-51.0); MEAN CORPUSCULAR HEMOGLOBIN 28.7 pg (27.0-34.0); MEAN CORPUSCULAR HGB CONC 33.5 g/dL (33.0-35.0); MEAN CORPUSCULAR VOLUME 85.6 fL (80.0-100.0); MEAN PLATELET VOLUME 8.5 fL (7.4-11.0); MONOCYTES # (AUTO) 0.8 x10^3/uL (0.3-0.8); MONOCYTES % (AUTO) 9.6 % (0.0-13.0); NEUTROPHILS # (AUTO) 5.3 x10^3/uL (2.2-4.8); NEUTROPHILS % (AUTO) 62.3 % (42.0-75.0); PLATELET COUNT 279 X10^3/uL (150.0-450.0); RED BLOOD COUNT 4.29 X10^6/uL (3.5-5.4); WHITE BLOOD COUNT 8.6 X10^3/uL (3.6-10.0)
[2016-09-19 12:44] LABS: BLOOD UREA NITROGEN 14 mg/dL (7-18); CALCIUM 9.4 mg/dL (8.5-10.1); CARBON DIOXIDE 27.2 mmol/L (21-32); CHLORIDE 102 mmol/L (98-107); CREATININE 0.92 mg/dL (0.55-1.02); GLUCOSE 108 mg/dL (65-99); SODIUM 138 mmol/L (136-145); eGFR BLACK RACES > 60 (>60); eGFR NON BLACK RACES > 60 (>60)
[2016-09-19 12:51] LABS: BILIRUBIN,URINE NEGATIVE (NEGATIVE); BLOOD/HEMOGLOBIN,URINE NEGATIVE (NEGATIVE); GLUCOSE, URINE NEGATIVE (NEGATIVE); KETONES,URINE NEGATIVE (NEGATIVE); LEUKOCYTE ESTERASE ,URINE NEGATIVE (NEGATIVE); NITRITES,URINE NEGATIVE (NEGATIVE); PROTEIN,URINE NEGATIVE (NEGATIVE); UROBILINOGEN,URINE NORMAL (NORMAL)
[2016-09-19 13:06] LABS: PLATELET MORPHOLOGY COMMENT NORMAL (NORMAL)
[2016-09-19 13:06] LABS: APPEARANCE,URINE CLEAR (CLEAR); BACTERIA,URINE TRACE /HPF (NEGATIVE); COLOR,URINE YELLOW (YELLOW); RBC,URINE 0 /HPF (NEGATIVE); SQUAMOUS EPITHELIAL CELL,UR FEW /HPF (NEGATIVE)
[2016-09-19] MEDS ORDERED: ROCEPHIN VIAL 1 GM IM ONE (13:17)
[2016-09-19] MEDS ORDERED: XYLOCAINE 1 % (PLAIN) ONE (13:25)
[2016-09-19] MEDS ORDERED: ROCEPHIN VIAL 1 GM ONE (13:25)
--- NOTE | 2016-09-19 14:13 | RAD ---
HISTORY: Dyspnea and hemoptysis. Study: Two views chest. Comparison: September 11, 2016. Findings: The trachea is midline. The cardiac silhouette is unremarkable. There is worsening right midlung zo ne linear parenchymal disease which could reflect scarring or atelectasis. If the patient's hemoptys is persists, CT imaging of the chest is recommended. The remaining lungs are clear without focal in filtrate or effusion. The bony thorax is unremarkable. IMPRESSION: 1. As above. Reported By:
== END 2016-09-19 14:56 | disposition home or self-care (01) ==
LOC: ER 11:53
DX: J40 Bronchitis, not specified as acute or chronic (principal)
CPT/HCPCS: 36415; 71020; 80048; 81001; 85025; 96372; 99282; 99283; J0696; J2001

== ENCOUNTER 2016-09-27 13:07 | Emergency (ER) | payer SELFPAY ==
[2016-09-27 13:17] VITALS: BP 95/68; BMI 39.6
[2016-09-27] MEDS ORDERED: TORADOL 60 MG VIAL IM ONE (13:52)
--- NOTE | 2016-09-27 13:52 | DR.GENAD ---
HPI - PCP Primary Care Physician: nika - Complaint/Symptoms Chief Complaint Doctors Comments: Patient admits to migraine headaches onset of this headache was this AM. Frontal throbbing, 8/10, worse with light. Usually takes preventative medication. She has had several cxr and each shows atelctasis -segmental Chief Complaint:: pt c/o headache body aches cough congestion .Patient is concerned about the bronchitis she has with associated with atelectasis of lung segment. - Source History Provided: Patient - Mode of Arrival Mode of Arrival: Ambulatory - Timing Onset of Chief Complaint: 09/06/16 PMH - PMH Past Medical History: Yes Past Medical History: Anemia, Depression, Diabetes, Dyslipidemia, Headaches, Hypertension Past Surgical History: Yes Surgical History: Appendectomy, Cholecystectomy, PATIENT SVCS MGR Surgery, 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 Past Surgical History Comment: sinus surgery - Family History History of Family Medical Conditions: Yes Family Medical History: Diabetes Mellitus, [place], Hypertension - Social History Alcohol Use: None Do you use any recreational Drugs:: No Lives With: Family Lives Where: Home - infectious screening In the last 2 months have you had wt loss of >10#?: NO Have you had fever, night sweats or hemotysis?: No Have you traveled outside the country in the last 6 months?: No Isolation: Standard ROS - Review of Systems Eyes: No Symptoms Reported ENTM: No Symptoms Reported Respiratoy: No Symptoms Reported Cardiovascular: No Symptoms Reported Gastrointestinal/Abdominal: No Symptoms Reported Genitourinary: No Symptoms Reported Neurological: No Symptoms Reported Musculoskeletal: No Symptoms Reported Integumentary: No Symptoms Reported Hematologic/Lymphatic: No Symptoms Reported Endocrine: No Symptoms Reported Psychiatric: No Symptoms Reported All Other Systems: Reviewed and Negative PE - Vital Signs Vitals: Temperature 97.9 F Pulse Rate 73 Respiratory Rate 18 Blood Pressure 95/68 O2 Sat by Pulse Oximetry 95 - General General Appearance: Alert, In No Apparent Distress - Head Head Exam: Normal Inspection, Atraumatic - Eyes Eye exam: Normal Appearance, PERRL, EOMI - ENT ENT Exam: Normal Exam External Ear Exam: Normal External Inspection TM/Canal Exam: Bilateral Normal Nose Exam: Normal Nose Exam Mouth Exam: Normal Inspection Throat Exam: Normal Inspection - Neck Neck Exam: Normal Inspection - Chest Chest Inspection: Normal Inspection - Respiratory Respiratory Exam: Normal Lung Sounds Bilat Respiratory Exam: Bilateral Clear to Auscultation - Cardiovascular Cardiovascular Exam: Regular Rate, Normal Rhythm - Abdominal Exam Abdominal Exam: Normal Inspection Abdominal Tenderness: negative: RUQ, RLQ, LUQ, LLQ, Epigastrium, Suprapubic, Diffuse, Mild, Moderate, Severe, Other - Back Back Exam: Normal Inspection - Neurologic Neurological Exam: Alert, Oriented X3, CN II-XII Intact - Psychiatric Psychiatric Exam: Normal Affect - Skin Skin Exam: Warm, Dry, Intact Course - Treatment Treatment: Respiratory showed patient how use the incentive spirometry - Reevaluation 1st: Improved - Diagnosis Discharge Problem: Deficient knowledge of atelectasis Migraine headache Qualifiers: Migraine type: unspecified Status migrainosus presence: without status migrainosus Intractability: not intractable Qualified Code(s): G43.909 - Migraine, unspecified, not intractable, without status migrainosus - Discharge Plan Condition: Stable - Follow ups/Referrals Follow ups/Referrals: Timoteo Tello [Primary Care Provider] - 3 days - Instructions
[2016-09-27] MEDS ORDERED: TORADOL 60 MG VIAL ONE (14:05)
== END 2016-09-27 15:09 | disposition home or self-care (01) ==
LOC: ER 13:19
DX: G43.909 Migraine, unspecified, not intractable, without status migrainosus (principal); J98.11 Atelectasis
CPT/HCPCS: 96372; 99282; J1885

== ENCOUNTER 2016-11-03 14:44 | Emergency (ER) | payer SELFPAY ==
[2016-11-03 15:05] VITALS: BP 111/71; BMI 40.2
[2016-11-03 15:43] LABS: APPEARANCE,URINE CLEAR (CLEAR); COLOR,URINE ORANGE (YELLOW)
[2016-11-03 15:44] LABS: AMORPHOUS SEDIMENT,UR TRACE /HPF (NEGATIVE); BACTERIA,URINE Negative /HPF (Negative); MUCUS,URINE MODERATE /HPF (NEGATIVE); SQUAMOUS EPITHELIAL CELL,UR MODERATE /HPF (NEGATIVE)
[2016-11-03 15:45] LABS: RBC,URINE RARE /HPF (NEGATIVE)
--- NOTE | 2016-11-03 16:01 | DR.HEADACH ---
HPI - Time Seen Time seen: 15:50 - Primary Care Physician Primary Care Physician: ROCÍO MCDONOUGH - Complaint/Symptoms Chief Complaint:: PT C/O ABD, BACK PAIN AND PT IS HAVING DIFFICULTY URINATING ". Self Treatment fo Chief Complaint: AZO - Source History Provided: Patient - Mode of Arrival Mode of Arrival: Ambulatory - Timing Onset of Chief Complaint: 10/28/16 - Location Headache Location: Frontal - Severity Headache Severity: Moderate PMH - PMH Past Medical History: Yes Past Medical History: Anemia, Depression, Diabetes, Dyslipidemia, Headaches, Hypertension Past Surgical History: Yes Surgical History: Unknown, Appendectomy, Cholecystectomy, [employer] Surgery, 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 - Family History History of Family Medical Conditions: Yes Family Medical History: Diabetes Mellitus, Cancer, [place], Hypertension - Social History Does patient currently use any type of tobacco product: No Have you used tobacco products in the last 12 months: No Type of Tobacco Use: None Does any household member use tobacco: No Alcohol Use: None Do you use any recreational Drugs:: No Lives With: Family Lives Where: Home - infectious screening In the last 2 months have you had wt loss of >10#?: NO Have you had fever, night sweats or hemotysis?: No Have you traveled outside the country in the last 6 months?: No ROS - Review of Systems Constitutional: negative: Diaphoresis Eyes: No Symptoms Reported ENTM: No Symptoms Reported Respiratoy: No Symptoms Reported Cardiovascular: No Symptoms Reported Gastrointestinal/Abdominal: No Symptoms Reported Genitourinary: No Symptoms Reported Neurological: No Symptoms Reported Musculoskeletal: No Symptoms Reported Integumentary: No Symptoms Reported Hematologic/Lymphatic: No Symptoms Reported Endocrine: No Symptoms Reported Psychiatric: No Symptoms Reported All Other Systems: Reviewed and Negative PE - Vital Signs Vitals: Pulse Rate 98 Respiratory Rate 20 Blood Pressure 111/71 O2 Sat by Pulse Oximetry 96 - General Limitations: No Limitations General Appearance: Alert, In No Apparent Distress - Head Head Exam: Normal Inspection, Atraumatic - Eyes Eye exam: Normal Appearance, PERRL, EOMI Eyelids: Normal Inspection: Bilateral Pupils: Regular, Round: Bilateral Sclera/Conjunctival: Normal Inspection: Bilateral - ENT ENT Exam: Normal Exam, Normal Oropharynx External Ear Exam: Normal External Inspection TM/Canal Exam: Bilateral Normal Nose Exam: Normal Nose Exam Mouth Exam: Normal Inspection Teeth Exam: Normal Inspection Throat Exam: Normal Inspection - Neck Neck Exam: Normal Inspection - Chest Chest Inspection: Normal Inspection - Respiratory Respiratory Exam: Normal Lung Sounds Bilat Respiratory Exam: Bilateral Clear to Auscultation - Cardiovascular Cardiovascular Exam: Regular Rate, Normal Rhythm - Abdominal Exam Abdominal Exam: Normal Inspection, Normal Bowel Sounds Abdominal Tenderness: negative: RUQ, RLQ, LUQ, LLQ, Epigastrium, Suprapubic, Diffuse, Mild, Moderate, Severe, Other - Extremities Extremities Exam: Normal Inspection - Back Back Exam: Normal Inspection - Neurologic Neurological Exam: Alert, Oriented X3, CN II-XII Intact - Psychiatric Psychiatric Exam: Normal Affect, Normal Mood - Skin Skin Exam: Warm, Dry, Intact Course - Reevaluation 1st: Improved ROR - Labs Reviewed Result Diagrams: 11/03/16 16:14 11/03/16 16:14 Laboratory: 11/03/16 16:21 Arm - Aspirate Gram Stain - Final WBC 7.3 X10^3/uL (3.6-10.0) 11/03/16 16:14 RBC 4.17 X10^6/uL (3.5-5.4) 11/03/16 16:14 Hgb 11.9 g/dL (12.0-16.0) L 11/03/16 16:14 Hct 35.2 % (36.0-47.0) L 11/03/16 16:14 MCV 84.5 fL (80.0-100.0) 11/03/16 16:14 MCH 28.6 pg (27.0-34.0) 11/03/16 16:14 MCHC 33.8 g/dL (33.0-35.0) 11/03/16 16:14 RDW 13.5 % (11.6-16.5) 11/03/16 16:14 Plt Count 218 X10^3/uL (150.0-450.0) 11/03/16 16:14 MPV 9.5 fL (7.4-11.0) 11/03/16 16:14 Neut % 58.7 % (42.0-75.0) 11/03/16 16:14 Lymph % 27.0 % (21.0-51.0) 11/03/16 16:14 [place] % 11.6 % (0.0-13.0) 11/03/16 16:14 Eos % 2.4 % (0.9-2.9) 11/03/16 16:14 Baso % 0.3 % (0.2-1.0) 11/03/16 16:14 Neut # 4.3 x10^3/uL (2.2-4.8) 11/03/16 16:14 Lymph # 2.0 X10^3/uL (1.3-2.9) 11/03/16 16:14 [place] # 0.8 x10^3/uL (0.3-0.8) 11/03/16 16:14 Eos # 0.2 x10^3/uL (0.0-0.2) 11/03/16 16:14 Baso # 0.0 X10^3/uL (0.0-0.1) 11/03/16 16:14 Absolute Nucleated RBC 0.0 /100WBC 11/03/16 16:14 Sodium 141 mmol/L (136-145) 11/03/16 16:14 Corrected Sodium 142 mmol/L (136-145) 11/03/16 16:14 Potassium 4.0 mmol/L (3.5-5.1) 11/03/16 16:14 Chloride 107 mmol/L (98-107) 11/03/16 16:14 Carbon Dioxide 26.7 mmol/L (21-32) 11/03/16 16:14 BUN 13 mg/dL (7-18) 11/03/16 16:14 Creatinine 0.80 mg/dL (0.55-1.02) 11/03/16 16:14 Est GFR (MDRD) Af Amer > 60 (>60) 11/03/16 16:14 Est GFR (MDRD) Non-Af > 60 (>60) 11/03/16 16:14 Glucose 132 mg/dL (65-99) H 11/03/16 16:14 Calcium 9.0 mg/dL (8.5-10.1) 11/03/16 16:14 Corrected Calcium TNP 11/03/16 16:14 Total Bilirubin 0.20 mg/dL (0.2-1.0) 11/03/16 16:14 AST 20 Units/L (15-37) 11/03/16 16:14 ALT 55 Units/L (12-78) 11/03/16 16:14 Alkaline Phosphatase 83 Units/L (46-116) 11/03/16 16:14 C-Reactive Protein 11.50 mg/L (0-3.0) H 11/03/16 16:14 Total Protein 7.4 g/dL (6.4-8.2) 11/03/16 16:14 Albumin 3.5 g/dL (3.4-5.0) 11/03/16 16:14 Globulin 3.9 g/dL (2.5-4.5) 11/03/16 16:14 Albumin/Globulin Ratio 0.9 Ratio (1.1-2.1) L 11/03/16 16:14 Amylase 41 Units/L (25-115) 11/03/16 16:14 Lipase 165 Units/L (73-393) 11/03/16 16:14 Specimen Type Clean catch urine 11/03/16 15:21 Urine Color [place] (YELLOW) 11/03/16 15:21 Urine Appearance Clear (CLEAR) 11/03/16 15:21 Urine RBC Rare /HPF (NEGATIVE) 11/03/16 15:21 Urine WBC 01 - 04 /HPF (NEGATIVE) 11/03/16 15:21 Ur Squamous Epith Cells Moderate /HPF (NEGATIVE) 11/03/16 15:21 Amorphous Sediment Trace /HPF (NEGATIVE) 11/03/16 15:21 Urine Bacteria Negative /HPF (Negative) 11/03/16 15:21 Urine Mucus Moderate /HPF (NEGATIVE) 11/03/16 15:21 Ur Culture Indicated? No/not indicated 11/03/16 15:21 Micro UA Comment Unable to perform (-) 11/03/16 15:21 - XRAY XRAY Interpreted by: Radiologist (CT Abd/pel negative, Chest no acute abdomality ) - Diagnosis Discharge Problem: Cough Abdominal pain Qualifiers: Abdominal location: lower abdomen, unspecified Qualified Code(s): R10.30 - Lower abdominal pain, unspecified - Discharge Plan Condition: Stable - Follow ups/Referrals Follow ups/Referrals: Timoteo Tello [Primary Care Provider] - 3 days - Instructions
[2016-11-03 16:24] LABS: BASOPHILS % (AUTO) 0.3 % (0.2-1.0); EOSINOPHILS # (AUTO) 0.2 x10^3/uL (0.0-0.2); EOSINOPHILS % (AUTO) 2.4 % (0.9-2.9); HEMATOCRIT 35.2 % (36.0-47.0); HEMOGLOBIN 11.9 g/dL (12.0-16.0); MEAN CORPUSCULAR HEMOGLOBIN 28.6 pg (27.0-34.0); MEAN CORPUSCULAR HGB CONC 33.8 g/dL (33.0-35.0); MEAN CORPUSCULAR VOLUME 84.5 fL (80.0-100.0); MEAN PLATELET VOLUME 9.5 fL (7.4-11.0); MONOCYTES # (AUTO) 0.8 x10^3/uL (0.3-0.8); MONOCYTES % (AUTO) 11.6 % (0.0-13.0); NEUTROPHILS # (AUTO) 4.3 x10^3/uL (2.2-4.8); NEUTROPHILS % (AUTO) 58.7 % (42.0-75.0); PLATELET COUNT 218 X10^3/uL (150.0-450.0); RED BLOOD COUNT 4.17 X10^6/uL (3.5-5.4); RED CELL DISTRIBUTION WIDTH 13.5 % (11.6-16.5); WHITE BLOOD COUNT 7.3 X10^3/uL (3.6-10.0)
[2016-11-03 16:34] LABS: AMYLASE 41 Units/L (25-115); LIPASE 165 Units/L (73-393)
[2016-11-03 16:37] LABS: ALANINE AMINOTRANSFERASE 55 Units/L (12-78); ALBUMIN 3.5 g/dL (3.4-5.0); ALKALINE PHOSPHATASE 83 Units/L (46-116); ASPARTATE AMINO TRANSFERASE 20 Units/L (15-37); BLOOD UREA NITROGEN 13 mg/dL (7-18); CARBON DIOXIDE 26.7 mmol/L (21-32); CHLORIDE 107 mmol/L (98-107); COR NA(FOR HYPERGLY) 142 mmol/L (136-145); GLUCOSE 132 mg/dL (65-99); SODIUM 141 mmol/L (136-145); TOTAL PROTEIN 7.4 g/dL (6.4-8.2); eGFR BLACK RACES > 60 (>60); eGFR NON BLACK RACES > 60 (>60)
--- NOTE | 2016-11-03 16:48 | RAD ---
Examination: Chest x-ray. Clinical history: Cough, abdominal pain. Technique: A single portable AP view of the chest was obtained. Comparison: 09/19/2016. Findings: The cardiac and mediastinal contours are within normal limits. No pneumothorax or pleural effusion is noted. The lungs are clear. No acute osseous abnormality is noted. Impression: 1. No acute disease. Reported By:
[2016-11-03] MEDS ORDERED: NS 1000 ML 1,000 ML IV SCH (17:00)
[2016-11-03] MEDS ORDERED: NS 100 ML IV 100 ML IV ONE (17:01)
--- NOTE | 2016-11-03 17:30 | CT ---
HISTORY: Abdominal pain Study: CT abdomen and pelvis with IV contrast Comparison: September 07, 2016 Technique: Multiple axial images of the abdomen and pelvis were obtained from the lung bases to the pubic symph ysis with the administration of IV contrast. Sagittal and coronal reformations were provided. Findings: There is minimal subsegmental atelectasis at the left lung base. The visualized portions of the lung bases are unremarkable. The liver, spleen, pancreas, kidneys, and adrenal glands are unremarkable in their CT appearance. The gallbladder in uterus and appendix are all surgically absent.. No signi ficant mesenteric lymphadenopathy or stranding can be observed. No free fluid or free air is seen w ithin the abdomen. No bowel wall thickening or bowel dilatation is present. The colon is unremarka ble. Specifically, there is no diverticulosis noted within the sigmoid colon. The urinary bladder i s grossly unremarkable. The bony structures are grossly intact. IMPRESSION: 1. Negative CT of the abdomen and pelvis. Reported By:
[2016-11-03] MEDS ORDERED: NORCO 7.5/325 MG TAB PO ONE (17:50)
[2016-11-03] MEDS ORDERED: NORCO 7.5/325 MG TAB ONE (17:56)
== END 2016-11-03 17:57 | disposition home or self-care (01) ==
LOC: ER 15:11
DX: R10.84 Generalized abdominal pain (principal); R05 Cough; B95.62 Methicillin resistant Staphylococcus aureus infection as the cause of diseases classified elsewhere
CPT/HCPCS: 36415; 71010; 74177; 80053; 81015; 82150; 83690; 85025; 86140; 87070; 87075; 87077; 87186; 87205; 96365; 96374; 99283; A4222

== ENCOUNTER 2016-11-06 10:15 | Emergency (ER) | payer SELFPAY ==
[2016-11-06 10:21] VITALS: BP 95/72; BMI 40.2
--- NOTE | 2016-11-06 10:50 | DR.GENAD ---
HPI - PCP Primary Care Physician: nika - HPI Comment HPI Comment: HISTORY BELOW. - Complaint/Symptoms Chief Complaint Doctors Comments: BACK AND ABDOMEN PAIN FOR SEVERAL DAYS. EVALUATED SUNDAY IN ED. NOT GETTING BETTER. NO FEVER OR DYSURIA. Chief Complaint:: patient stated she has been hurting in her back and abd for about a week and has been taken azo with no relief. she was seen by dr laird in the er sunday and was told to come back to the er if she wasnt any better. - Nurses notes reviewed Nurses Notes Review: Yes - Source History Provided: Patient - Mode of Arrival Mode of Arrival: Ambulatory - Timing Onset of Chief Complaint: 10/30/16 Came on: Gradually - Duration Duration: Constant Duration: Days - Severity Severity: Moderate PMH - PMH Past Medical History: Yes Past Medical History: Anemia, Depression, Diabetes, Dyslipidemia, Headaches, Hypertension Past Surgical History: Yes Surgical History: Unknown, Appendectomy, Cholecystectomy, [employer] Surgery, 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 - Family History History of Family Medical Conditions: Yes Family Medical History: Diabetes Mellitus, Cancer, [place], Hypertension - Social History Does patient currently use any type of tobacco product: No Have you used tobacco products in the last 12 months: No Type of Tobacco Use: None Does any household member use tobacco: No Alcohol Use: None Do you use any recreational Drugs:: No Lives With: Family Lives Where: Home - infectious screening In the last 2 months have you had wt loss of >10#?: NO Have you had fever, night sweats or hemotysis?: No Have you traveled outside the country in the last 6 months?: No Isolation: Standard ROS - Review of Systems Constitutional: No Symptoms Reported Eyes: No Symptoms Reported ENTM: No Symptoms Reported Respiratoy: No Symptoms Reported Cardiovascular: No Symptoms Reported Gastrointestinal/Abdominal: Abdominal Pain Genitourinary: No Symptoms Reported Neurological: No Symptoms Reported Musculoskeletal: No Symptoms Reported Integumentary: No Symptoms Reported Hematologic/Lymphatic: No Symptoms Reported Endocrine: No Symptoms Reported All Other Systems: Reviewed and Negative PE - Vital Signs Vitals: Temperature 97.9 F Pulse Rate 73 Respiratory Rate 16 Blood Pressure 95/72 O2 Sat by Pulse Oximetry 100 - General Limitations: No Limitations General Appearance: Alert - Head Head Exam: Normal Inspection - Eyes Eye exam: Normal Appearance - ENT ENT Exam: Normal External Ear Exam External Ear Exam: Normal External Inspection TM/Canal Exam: Bilateral Normal Nose Exam: Normal Nose Exam Mouth Exam: Normal Inspection Throat Exam: Normal Inspection - Neck Neck Exam: Trachea Midline - Respiratory Respiratory Exam: Normal Lung Sounds Bilat Respiratory Exam: Bilateral Clear to Auscultation - Abdominal Exam Abdominal Exam: Normal Bowel Sounds, Soft, Tenderness Abdominal Tenderness: Diffuse, Moderate - Extremities Extremities Exam: Normal Inspection - Back Back Exam: Normal Inspection - Neurologic Neurological Exam: Alert, Oriented X3 - Skin Skin Exam: Normal Color [facility] - Additional Information Additional Information Obtained From: Family - Differential Diagnosis Differential Diagnosis: ABDOMINAL PAIN Course - Treatment Treatment: SEE ORSERS - Education/Counseling Education/Counseling: Patient, Family, Education Educated On: Diagnosis ROR - Labs Reviewed Result Diagrams: 11/06/16 11:12 11/06/16 11:12 Laboratory: WBC 5.9 X10^3/uL (3.6-10.0) 11/06/16 11:12 RBC 4.21 X10^6/uL (3.5-5.4) 11/06/16 11:12 Hgb 12.0 g/dL (12.0-16.0) 11/06/16 11:12 Hct 35.7 % (36.0-47.0) L 11/06/16 11:12 MCV 84.9 fL (80.0-100.0) 11/06/16 11:12 MCH 28.5 pg (27.0-34.0) 11/06/16 11:12 MCHC 33.5 g/dL (33.0-35.0) 11/06/16 11:12 RDW 13.4 % (11.6-16.5) 11/06/16 11:12 Plt Count 222 X10^3/uL (150.0-450.0) 11/06/16 11:12 MPV 9.3 fL (7.4-11.0) 11/06/16 11:12 Neut % 48.5 % (42.0-75.0) 11/06/16 11:12 Lymph % 33.4 % (21.0-51.0) 11/06/16 11:12 [place] % 14.2 % (0.0-13.0) H 11/06/16 11:12 Eos % 3.5 % (0.9-2.9) H 11/06/16 11:12 Baso % 0.4 % (0.2-1.0) 11/06/16 11:12 Neut # 2.9 x10^3/uL (2.2-4.8) 11/06/16 11:12 Lymph # 2.0 X10^3/uL (1.3-2.9) 11/06/16 11:12 [place] # 0.8 x10^3/uL (0.3-0.8) 11/06/16 11:12 Eos # 0.2 x10^3/uL (0.0-0.2) 11/06/16 11:12 Baso # 0.0 X10^3/uL (0.0-0.1) 11/06/16 11:12 Absolute Nucleated RBC 0.0 /100WBC 11/06/16 11:12 Sodium 138 mmol/L (136-145) 11/06/16 11:12 Corrected Sodium 140 mmol/L (136-145) 11/06/16 11:12 Potassium 3.7 mmol/L (3.5-5.1) 11/06/16 11:12 Chloride 103 mmol/L (98-107) 11/06/16 11:12 Carbon Dioxide 27.1 mmol/L (21-32) 11/06/16 11:12 BUN 14 mg/dL (7-18) 11/06/16 11:12 Creatinine 0.86 mg/dL (0.55-1.02) 11/06/16 11:12 Est GFR (MDRD) Af Amer > 60 (>60) 11/06/16 11:12 Est GFR (MDRD) Non-Af > 60 (>60) 11/06/16 11:12 Glucose 179 mg/dL (65-99) H 11/06/16 11:12 Calcium 8.9 mg/dL (8.5-10.1) 11/06/16 11:12 Corrected Calcium TNP 11/06/16 11:12 Total Bilirubin 0.20 mg/dL (0.2-1.0) 11/06/16 11:12 AST 173 Units/L (15-37) H 11/06/16 11:12 ALT 141 Units/L (12-78) H 11/06/16 11:12 Alkaline Phosphatase 104 Units/L (46-116) 11/06/16 11:12 Total Protein 7.4 g/dL (6.4-8.2) 11/06/16 11:12 Albumin 3.4 g/dL (3.4-5.0) 11/06/16 11:12 Globulin 4.0 g/dL (2.5-4.5) 11/06/16 11:12 Albumin/Globulin Ratio 0.9 Ratio (1.1-2.1) L 11/06/16 11:12 Amylase 35 Units/L (25-115) 11/06/16 11:12 Lipase 117 Units/L (73-393) 11/06/16 11:12 Specimen Type Clean catch urine 11/06/16 11:12 Urine Color Yellow (YELLOW) 11/06/16 11:12 Urine Appearance Clear (CLEAR) 11/06/16 11:12 Urine pH 5.0 (5.0 - 8.0) 11/06/16 11:12 Ur Specific [place] 1.020 (1.000-1.030) 11/06/16 11:12 Urine Protein Negative (NEGATIVE) 11/06/16 11:12 Urine Glucose (UA) Negative (NEGATIVE) 11/06/16 11:12 Urine Ketones Negative (NEGATIVE) 11/06/16 11:12 Urine Occult Blood Negative (NEGATIVE) 11/06/16 11:12 Urine Nitrite Negative (NEGATIVE) 11/06/16 11:12 Urine Bilirubin Negative (NEGATIVE) 11/06/16 11:12 Urine Urobilinogen Normal (NORMAL) 11/06/16 11:12 Ur Leukocyte Esterase Negative (NEGATIVE) 11/06/16 11:12 Urine RBC Negative /HPF (NEGATIVE) 11/06/16 11:12 Urine WBC Rare /HPF (NEGATIVE) 11/06/16 11:12 Ur Squamous Epith Cells Rare /HPF (NEGATIVE) 11/06/16 11:12 Urine Bacteria Negative /HPF (NEGATIVE) 11/06/16 11:12 Ur Culture Indicated? No/not indicated 11/06/16 11:12 - Diagnosis Discharge Problem: Abdominal pain - Discharge Plan Disposition: 01 HOME, SELF-CARE Condition: Stable - Follow ups/Referrals Follow ups/Referrals: Timoteo Tello [Primary Care Provider] - 2 days - Instructions Instructions: Abdominal Pain, Adult, [id number] Additional Instructions: RETURN TO ED IF WORSE.
[2016-11-06 11:24] LABS: BILIRUBIN,URINE NEGATIVE (NEGATIVE); BLOOD/HEMOGLOBIN,URINE NEGATIVE (NEGATIVE); GLUCOSE, URINE NEGATIVE (NEGATIVE); KETONES,URINE NEGATIVE (NEGATIVE); LEUKOCYTE ESTERASE ,URINE NEGATIVE (NEGATIVE); NITRITES,URINE NEGATIVE (NEGATIVE); PROTEIN,URINE NEGATIVE (NEGATIVE); UROBILINOGEN,URINE NORMAL (NORMAL)
[2016-11-06 11:25] LABS: BASOPHILS % (AUTO) 0.4 % (0.2-1.0); EOSINOPHILS # (AUTO) 0.2 x10^3/uL (0.0-0.2); EOSINOPHILS % (AUTO) 3.5 % (0.9-2.9); HEMATOCRIT 35.7 % (36.0-47.0); LYMPHOCYTES % (AUTO) 33.4 % (21.0-51.0); MEAN CORPUSCULAR HEMOGLOBIN 28.5 pg (27.0-34.0); MEAN CORPUSCULAR HGB CONC 33.5 g/dL (33.0-35.0); MEAN CORPUSCULAR VOLUME 84.9 fL (80.0-100.0); MEAN PLATELET VOLUME 9.3 fL (7.4-11.0); MONOCYTES # (AUTO) 0.8 x10^3/uL (0.3-0.8); MONOCYTES % (AUTO) 14.2 % (0.0-13.0); NEUTROPHILS # (AUTO) 2.9 x10^3/uL (2.2-4.8); NEUTROPHILS % (AUTO) 48.5 % (42.0-75.0); PLATELET COUNT 222 X10^3/uL (150.0-450.0); RED BLOOD COUNT 4.21 X10^6/uL (3.5-5.4); RED CELL DISTRIBUTION WIDTH 13.4 % (11.6-16.5); WHITE BLOOD COUNT 5.9 X10^3/uL (3.6-10.0)
[2016-11-06 11:37] LABS: APPEARANCE,URINE CLEAR (CLEAR); BACTERIA,URINE NEGATIVE /HPF (NEGATIVE); COLOR,URINE YELLOW (YELLOW); RBC,URINE NEGATIVE /HPF (NEGATIVE); SQUAMOUS EPITHELIAL CELL,UR RARE /HPF (NEGATIVE)
[2016-11-06 11:45] LABS: BLOOD UREA NITROGEN 14 mg/dL (7-18); CALCIUM 8.9 mg/dL (8.5-10.1); CARBON DIOXIDE 27.1 mmol/L (21-32); CHLORIDE 103 mmol/L (98-107); COR NA(FOR HYPERGLY) 140 mmol/L (136-145); CREATININE 0.86 mg/dL (0.55-1.02); GLUCOSE 179 mg/dL (65-99); SODIUM 138 mmol/L (136-145); eGFR BLACK RACES > 60 (>60); eGFR NON BLACK RACES > 60 (>60)
[2016-11-06 13:17] LABS: ALANINE AMINOTRANSFERASE 141 Units/L (12-78); ALBUMIN 3.4 g/dL (3.4-5.0); ALKALINE PHOSPHATASE 104 Units/L (46-116); AMYLASE 35 Units/L (25-115); ASPARTATE AMINO TRANSFERASE 173 Units/L (15-37); LIPASE 117 Units/L (73-393); TOTAL PROTEIN 7.4 g/dL (6.4-8.2)
== END 2016-11-06 12:33 | disposition home or self-care (01) ==
LOC: ER 10:32
DX: R10.84 Generalized abdominal pain (principal)
CPT/HCPCS: 36415; 80053; 81001; 82150; 83690; 85025; 99282

== ENCOUNTER 2016-12-11 14:12 | Emergency (ER) | payer SELFPAY ==
[2016-12-11 14:16] VITALS: BP 97/82; BMI 40.2
[2016-12-11] MEDS ORDERED: DECADRON INJ IV ONE (14:29)
[2016-12-11] MEDS ORDERED: NS 1000 ML 500 ML IV ONE (14:29)
--- NOTE | 2016-12-11 14:29 | DR.GENAD ---
HPI - PCP Primary Care Physician: nika - Complaint/Symptoms Chief Complaint Doctors Comments: She states that she has been off her medication for one to two weeks due to no insurance. She take maxsault, topramax and lyrica Chief Complaint:: patient stated she has had a miagraine for a week but it is worse today. - Source History Provided: Patient - Mode of Arrival Mode of Arrival: Ambulatory - Timing Onset of Chief Complaint: 12/04/16 PMH - PMH Past Medical History: Yes Past Medical History: Anemia, Depression, Diabetes, Dyslipidemia, Headaches, Hypertension Past Surgical History: Yes Surgical History: Unknown, Appendectomy, Cholecystectomy, [employer] Surgery, 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 - Family History History of Family Medical Conditions: Yes Family Medical History: Diabetes Mellitus, Cancer, [place], Hypertension - Social History Does patient currently use any type of tobacco product: No Have you used tobacco products in the last 12 months: No Type of Tobacco Use: None Does any household member use tobacco: Yes Alcohol Use: None Do you use any recreational Drugs:: No Lives With: Family Lives Where: Home - infectious screening In the last 2 months have you had wt loss of >10#?: NO Have you had fever, night sweats or hemotysis?: No Have you traveled outside the country in the last 6 months?: No Isolation: Standard ROS - Review of Systems Eyes: No Symptoms Reported ENTM: No Symptoms Reported Respiratoy: No Symptoms Reported Cardiovascular: No Symptoms Reported Gastrointestinal/Abdominal: No Symptoms Reported Genitourinary: No Symptoms Reported Neurological: No Symptoms Reported Musculoskeletal: No Symptoms Reported Integumentary: No Symptoms Reported Hematologic/Lymphatic: No Symptoms Reported Endocrine: No Symptoms Reported Psychiatric: No Symptoms Reported All Other Systems: Reviewed and Negative PE - Vital Signs Vitals: Temperature 98.4 F Pulse Rate 94 Respiratory Rate 16 Blood Pressure 97/82 O2 Sat by Pulse Oximetry 96 - General Limitations: No Limitations General Appearance: Alert, In No Apparent Distress - Head Head Exam: Normal Inspection, Atraumatic - Eyes Eye exam: Normal Appearance, PERRL, EOMI - ENT ENT Exam: Normal Exam External Ear Exam: Normal External Inspection TM/Canal Exam: Bilateral Normal Nose Exam: Normal Nose Exam Mouth Exam: Normal Inspection Throat Exam: Normal Inspection - Neck Neck Exam: Normal Inspection - Chest Chest Inspection: Normal Inspection - Respiratory Respiratory Exam: Normal Lung Sounds Bilat Respiratory Exam: Bilateral Clear to Auscultation - Cardiovascular Cardiovascular Exam: Regular Rate, Normal Rhythm - Abdominal Exam Abdominal Tenderness: negative: RUQ, RLQ, LUQ, LLQ, Epigastrium, Suprapubic, Diffuse, Mild, Moderate, Severe, Other Course - Reevaluation 1st: Improved - Diagnosis Discharge Problem: Migraine headache Qualifiers: Migraine type: without aura Status migrainosus presence: without status migrainosus Intractability: not intractable Qualified Code(s): G43.009 - Migraine without aura, not intractable, without status migrainosus - Discharge Plan Disposition: 01 HOME, SELF-CARE Condition: Stable - Follow ups/Referrals Follow ups/Referrals: Timoteo Tello [Primary Care Provider] - 3 days - Instructions Instructions: Migraine Headache, [id number], Recurrent Migraine Headache, [id number]
[2016-12-11] MEDS ORDERED: ZOFRAN INJ 4 MG VIAL IVP ONE (14:31)
[2016-12-11] MEDS ORDERED: TORADOL 30 MG VIAL IVP ONE (14:32)
[2016-12-11] MEDS ORDERED: ZOFRAN INJ 4 MG VIAL ONE (15:02)
[2016-12-11] MEDS ORDERED: DECADRON INJ ONE (15:02)
[2016-12-11] MEDS ORDERED: NS 1000 ML 1,000 ML ONE (15:02)
== END 2016-12-11 16:28 | disposition home or self-care (01) ==
LOC: ER 14:18
DX: G43.009 Migraine without aura, not intractable, without status migrainosus (principal)
CPT/HCPCS: 96365; 96374; 96375; 99283; A4222; J1100; J1885; J2405

== ENCOUNTER 2016-12-26 13:00 | Emergency (ER) | payer SELFPAY ==
[2016-12-26 13:04] VITALS: BP 115/81; BMI 39.3
[2016-12-26] MEDS ORDERED: PRELONE Elixir 15 MG UDC PO ONE (13:36)
--- NOTE | 2016-12-26 13:36 | DR.GENAD ---
HPI - PCP Primary Care Physician: nika - HPI Comment HPI Comment: SLIGHT SWELLING PRESENT. - Complaint/Symptoms Chief Complaint Doctors Comments: SLAMMED CAR DOOR ON RIGHT LEG. INCREASING PAIN SINCE. Chief Complaint:: patient stated she slammed the car door on her right lower leg - Nurses notes reviewed Nurses Notes Review: Yes - Source History Provided: Patient - Mode of Arrival Mode of Arrival: Ambulatory - Timing Onset of Chief Complaint: 12/26/16 Came on: Suddenly - Duration Duration: Constant Duration: Hours - Severity Severity: Moderate PMH - PMH Past Medical History: Yes Past Medical History: Anemia, Depression, Diabetes, Dyslipidemia, Headaches, Hypertension Past Surgical History: Yes Surgical History: Unknown, Appendectomy, Cholecystectomy, [employer] Surgery, 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 - Family History History of Family Medical Conditions: Yes Family Medical History: Diabetes Mellitus, Cancer, [place], Hypertension - Social History Does patient currently use any type of tobacco product: No Have you used tobacco products in the last 12 months: No Type of Tobacco Use: None Does any household member use tobacco: No Alcohol Use: None Do you use any recreational Drugs:: No Lives With: Family Lives Where: Home - infectious screening In the last 2 months have you had wt loss of >10#?: NO Have you had fever, night sweats or hemotysis?: No Have you traveled outside the country in the last 6 months?: No Isolation: Standard ROS - Review of Systems Eyes: No Symptoms Reported ENTM: No Symptoms Reported Respiratoy: No Symptoms Reported Cardiovascular: No Symptoms Reported Gastrointestinal/Abdominal: No Symptoms Reported Genitourinary: No Symptoms Reported Neurological: No Symptoms Reported Musculoskeletal: Right, Leg Integumentary: No Symptoms Reported Hematologic/Lymphatic: No Symptoms Reported Endocrine: No Symptoms Reported All Other Systems: Reviewed and Negative PE - Vital Signs Vitals: Temperature 98.7 F Pulse Rate 103 Respiratory Rate 16 Blood Pressure 115/81 O2 Sat by Pulse Oximetry 100 - General Limitations: No Limitations General Appearance: Alert - Head Head Exam: Normal Inspection - Eyes Eye exam: Normal Appearance - ENT ENT Exam: Normal External Ear Exam External Ear Exam: Normal External Inspection TM/Canal Exam: Bilateral Normal Nose Exam: Normal Nose Exam Mouth Exam: Normal Inspection Throat Exam: Normal Inspection - Neck Neck Exam: Normal Inspection - Chest Chest Inspection: Symmetric Chest Wall Rise - Respiratory Respiratory Exam: Normal Lung Sounds Bilat Respiratory Exam: Bilateral Clear to Auscultation - Cardiovascular Cardiovascular Exam: Regular Rate, Normal Rhythm, Normal Heart Sounds - Abdominal Exam Abdominal Exam: Normal Inspection - Extremities Extremities Exam: Tenderness (TENDERNESS RIGHT LEG WITH SLIGHT SWELLING.) - Back Back Exam: Normal Inspection - Neurologic Neurological Exam: Alert, Oriented X3 - Skin Skin Exam: Intact MDM - Additional Information Additional Information Obtained From: Family - Differential Diagnosis Differential Diagnosis: CONTUSION, FRACTURE RIGHT LEG. Course - Treatment Treatment: SEE ORDERS. - Education/Counseling Education/Counseling: Patient, Family, Education Educated On: Diagnosis, Needs for Follow Up ROR - XRAY XRAY Interpreted by: Radiologist XRAY Findings: REPORT DISCUSS WITH PATIENT. - Diagnosis Discharge Problem: Contusion of right leg Qualifiers: Encounter type: initial encounter Qualified Code(s): S80.11XA - Contusion of right lower leg, initial encounter - Discharge Plan Condition: Stable Prescriptions: Ibuprofen [MOTRIN TAB 600 MG *] 600 mg PO TID PRN #20 tab PRN Reason: Pain/Inflammation - Follow ups/Referrals Follow ups/Referrals: Timoteo Tello [Primary Care Provider] - 3 days - Instructions Instructions: Musculoskeletal Pain Additional Instructions: RETURN TO ED IF WORSE.
[2016-12-26] MEDS ORDERED: TORADOL TAB PO ONE ×2 (13:54→13:56)
--- NOTE | 2016-12-26 14:01 | RAD ---
HISTORY: Lower extremity pain. Study: Complete series right tibia and fibula. Comparison: None available. Findings: No acute fracture, subluxation, or dislocation is identified. The knee and ankle joints are grossly intact. No definite pretibial soft tissue swelling is seen. No other soft tissue abnormalities are a pparent. No lytic or bone forming lesions are seen. No high-grade osteochondral defects are observed. No unexpected radiopaque foreign bodies are seen. There is no evidence for significant degenerative arthrosis. No focal joint erosions are seen, either. IMPRESSION: 1. Negative lower extremity radiographic exam. Reported By:
== END 2016-12-26 14:13 | disposition home or self-care (01) ==
LOC: ER 13:08
DX: S80.11XA Contusion of right lower leg, initial encounter (principal); X58.XXXA Exposure to other specified factors, initial encounter
CPT/HCPCS: 73590; 99282

== ENCOUNTER 2017-02-09 11:39 | Emergency (ER) | payer SELFPAY ==
[2017-02-09 11:45] VITALS: BP 125/68; BMI 40.0
[2017-02-09] MEDS ORDERED: TORADOL 60 MG VIAL IM ONE (12:02)
--- NOTE | 2017-02-09 12:02 | DR.GENAD ---
HPI - PCP Primary Care Physician: Omer - HPI Comment HPI Comment: GENERALIZE BODY ACHES. TOOK METFORMIN PRESCRIBE TODAY. - Complaint/Symptoms Chief Complaint Doctors Comments: ELEVATED GLUCOSE AND HEADAHE WHICH STARTED UPON WAKING UP THIS AM. Chief Complaint:: "When I woke up this morning my blood sugar was 230. I don't ever remember it being this high. I take metformin 2 times a day, but it is still really high for me. 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, 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 - Family History History of Family Medical Conditions: Yes Family Medical History: Diabetes Mellitus, Cancer, [place], Hypertension - Social History Does patient currently use any type of tobacco product: No Have you used tobacco products in the last 12 months: No Type of Tobacco Use: None Does any household member use tobacco: No Alcohol Use: None Do you use any recreational Drugs:: No Lives With: Significant Other Lives Where: Home - infectious screening In the last 2 months have you had wt loss of >10#?: NO Have you had fever, night sweats or hemotysis?: No Have you traveled outside the country in the last 6 months?: No Isolation: Standard ROS - Review of Systems Constitutional: Weakness, Fatigue. negative: Chills, Fever Eyes: No Symptoms Reported. negative: Eye Pain, Discharge ENTM: No Symptoms Reported, Nose Congestion. negative: Ear Pain, Nose Discharge , Mouth Pain, Throat Pain Respiratoy: No Symptoms Reported, Non-Productive Cough. negative: Productive Cough, Short of Breath, Wheezing Cardiovascular: No Symptoms Reported Genitourinary: No Symptoms Reported Neurological: No Symptoms Reported Musculoskeletal: No Symptoms Reported Integumentary: No Symptoms Reported Hematologic/Lymphatic: No Symptoms Reported Endocrine: No Symptoms Reported. negative: Flushing, Increased Thirst, Increased Urine All Other Systems: Reviewed and Negative PE - Vital Signs Vitals: Temperature 97.6 F Pulse Rate 112 Respiratory Rate 16 Blood Pressure 125/68 O2 Sat by Pulse Oximetry 97 - General Limitations: No Limitations General Appearance: Alert - Head Head Exam: Normal Inspection - Eyes Eye exam: Normal Appearance - ENT ENT Exam: Normal External Ear Exam External Ear Exam: Normal External Inspection TM/Canal Exam: Bilateral Normal Nose Exam: Normal Nose Exam Mouth Exam: Normal Inspection Throat Exam: Tonsillar Erythema - Neck Neck Exam: Normal Inspection - Chest Chest Inspection: Symmetric Chest Wall Rise - Respiratory Respiratory Exam: Normal Lung Sounds Bilat Respiratory Exam: Bilateral Clear to Auscultation - Cardiovascular Cardiovascular Exam: Regular Rate, Normal Rhythm, Normal Heart Sounds - Abdominal Exam Abdominal Exam: Normal Bowel Sounds, Soft. negative: Tenderness - Extremities Extremities Exam: Normal Inspection - Back Back Exam: Normal Inspection - Neurologic Neurological Exam: Alert, Oriented X3 - Psychiatric Psychiatric Exam: Normal Affect, Normal Mood - Skin Skin Exam: Normal Color MDM - Differential Diagnosis Differential Diagnosis: HYPERGLYCEMIA, DKA, HEADACHE Course - Treatment Treatment: SEE ORDERS - Education/Counseling Education/Counseling: Patient, Education Educated On: Treatment, Diagnosis, Needs for Follow Up ROR - Labs Reviewed Laboratory Results Reviewed?: Yes Result Diagrams: 02/09/17 12:05 02/09/17 12:05 Laboratory: WBC 6.0 X10^3/uL (3.6-10.0) 02/09/17 12:05 RBC 4.35 X10^6/uL (3.5-5.4) 02/09/17 12:05 Hgb 12.3 g/dL (12.0-16.0) 02/09/17 12:05 Hct 36.5 % (36.0-47.0) 02/09/17 12:05 MCV 84.0 fL (80.0-100.0) 02/09/17 12:05 MCH 28.4 pg (27.0-34.0) 02/09/17 12:05 MCHC 33.8 g/dL (33.0-35.0) 02/09/17 12:05 RDW 14.8 % (11.6-16.5) 02/09/17 12:05 Plt Count 199 X10^3/uL (150.0-450.0) 02/09/17 12:05 MPV 8.8 fL (7.4-11.0) 02/09/17 12:05 Neut % 48.1 % (42.0-75.0) 02/09/17 12:05 Lymph % 32.7 % (21.0-51.0) 02/09/17 12:05 [place] % 14.4 % (0.0-13.0) H 02/09/17 12:05 Eos % 4.2 % (0.9-2.9) H 02/09/17 12:05 Baso % 0.6 % (0.2-1.0) 02/09/17 12:05 Neut # 2.9 x10^3/uL (2.2-4.8) 02/09/17 12:05 Lymph # 2.0 X10^3/uL (1.3-2.9) 02/09/17 12:05 [place] # 0.9 x10^3/uL (0.3-0.8) H 02/09/17 12:05 Eos # 0.3 x10^3/uL (0.0-0.2) H 02/09/17 12:05 Baso # 0.0 X10^3/uL (0.0-0.1) 02/09/17 12:05 Absolute Nucleated RBC 0.1 /100WBC 02/09/17 12:05 Sodium 139 mmol/L (136-145) 02/09/17 12:05 Corrected Sodium 140 mmol/L (136-145) 02/09/17 12:05 Potassium 4.2 mmol/L (3.5-5.1) 02/09/17 12:05 Chloride 103 mmol/L (98-107) 02/09/17 12:05 Carbon Dioxide 21.0 mmol/L (21-32) 02/09/17 12:05 BUN 8 mg/dL (7-18) 02/09/17 12:05 Creatinine 0.72 mg/dL (0.55-1.02) 02/09/17 12:05 Est GFR (MDRD) Af Amer > 60 (>60) 02/09/17 12:05 Est GFR (MDRD) Non-Af > 60 (>60) 02/09/17 12:05 Glucose 145 mg/dL (65-99) H 02/09/17 12:05 Calcium 9.3 mg/dL (8.5-10.1) 02/09/17 12:05 Corrected Calcium TNP 02/09/17 12:05 Total Bilirubin 0.20 mg/dL (0.2-1.0) 02/09/17 12:05 AST 67 Units/L (15-37) H 02/09/17 12:05 ALT 113 Units/L (12-78) H 02/09/17 12:05 Alkaline Phosphatase 92 Units/L (46-116) 02/09/17 12:05 Total Protein 7.6 g/dL (6.4-8.2) 02/09/17 12:05 Albumin 3.4 g/dL (3.4-5.0) 02/09/17 12:05 Globulin 4.2 g/dL (2.5-4.5) 02/09/17 12:05 Albumin/Globulin Ratio 0.8 Ratio (1.1-2.1) L 02/09/17 12:05 Specimen Type Clean catch urine 02/09/17 12:37 Urine Color Yellow (YELLOW) 02/09/17 12:37 Urine Appearance Clear (CLEAR) 02/09/17 12:37 Urine pH 6.0 (5.0 - 8.0) 02/09/17 12:37 Ur Specific [place] 1.010 (1.000-1.030) 02/09/17 12:37 Urine Protein Negative (NEGATIVE) 02/09/17 12:37 Urine Glucose (UA) Negative (NEGATIVE) 02/09/17 12:37 Urine Ketones Negative (NEGATIVE) 02/09/17 12:37 Urine Occult Blood Negative (NEGATIVE) 02/09/17 12:37 Urine Nitrite Negative (NEGATIVE) 02/09/17 12:37 Urine Bilirubin Negative (NEGATIVE) 02/09/17 12:37 Urine Urobilinogen Normal (NORMAL) 02/09/17 12:37 Ur Leukocyte Esterase Negative (NEGATIVE) 02/09/17 12:37 Urine RBC None seen /HPF (NEGATIVE) 02/09/17 12:37 Urine WBC None seen /HPF (NEGATIVE) 02/09/17 12:37 Ur Squamous Epith Cells Rare /HPF (NEGATIVE) 02/09/17 12:37 Urine Bacteria Negative /HPF (NEGATIVE) 02/09/17 12:37 Ur Culture Indicated? No/not indicated 02/09/17 12:37 Acetone, Semi-Quant Negative (NEGATIVE) 02/09/17 12:05 - Diagnosis Discharge Problem: Migraine headache, Weakness generalized, Hyperglycemia - Discharge Plan Disposition: 01 HOME, SELF-CARE Condition: Stable Prescriptions: [id number] [Fioricet Tab] 1 tab PO Q8H PRN #30 tab PRN Reason: Migraine Headache Ondansetron [Zofran ODT 8 mg] 8 mg PO Q8H PRN #12 tab PRN Reason: Nausea/Vomiting - Follow ups/Referrals Follow ups/Referrals: Timoteo Tello [Primary Care Provider] - 3 days - Instructions Instructions: Migraine Headache, [id number], Hyperglycemia, [id number] Additional Instructions: RETURN TO ED IF WORSE.
[2017-02-09 12:16] LABS: BASOPHILS % (AUTO) 0.6 % (0.2-1.0); EOSINOPHILS # (AUTO) 0.3 x10^3/uL (0.0-0.2); EOSINOPHILS % (AUTO) 4.2 % (0.9-2.9); HEMATOCRIT 36.5 % (36.0-47.0); HEMOGLOBIN 12.3 g/dL (12.0-16.0); LYMPHOCYTES % (AUTO) 32.7 % (21.0-51.0); MEAN CORPUSCULAR HEMOGLOBIN 28.4 pg (27.0-34.0); MEAN CORPUSCULAR HGB CONC 33.8 g/dL (33.0-35.0); MEAN PLATELET VOLUME 8.8 fL (7.4-11.0); MONOCYTES # (AUTO) 0.9 x10^3/uL (0.3-0.8); MONOCYTES % (AUTO) 14.4 % (0.0-13.0); NEUTROPHILS # (AUTO) 2.9 x10^3/uL (2.2-4.8); NEUTROPHILS % (AUTO) 48.1 % (42.0-75.0); PLATELET COUNT 199 X10^3/uL (150.0-450.0); RED BLOOD COUNT 4.35 X10^6/uL (3.5-5.4); RED CELL DISTRIBUTION WIDTH 14.8 % (11.6-16.5)
[2017-02-09] MEDS ORDERED: TORADOL 60 MG VIAL ONE (12:20)
[2017-02-09 12:26] LABS: ALANINE AMINOTRANSFERASE 113 Units/L (12-78); ALBUMIN 3.4 g/dL (3.4-5.0); ALKALINE PHOSPHATASE 92 Units/L (46-116); ASPARTATE AMINO TRANSFERASE 67 Units/L (15-37); BLOOD UREA NITROGEN 8 mg/dL (7-18); CALCIUM 9.3 mg/dL (8.5-10.1); CHLORIDE 103 mmol/L (98-107); COR NA(FOR HYPERGLY) 140 mmol/L (136-145); CREATININE 0.72 mg/dL (0.55-1.02); SODIUM 139 mmol/L (136-145); TOTAL PROTEIN 7.6 g/dL (6.4-8.2); eGFR BLACK RACES > 60 (>60); eGFR NON BLACK RACES > 60 (>60)
[2017-02-09 12:44] LABS: BILIRUBIN,URINE NEGATIVE (NEGATIVE); BLOOD/HEMOGLOBIN,URINE NEGATIVE (NEGATIVE); GLUCOSE, URINE NEGATIVE (NEGATIVE); KETONES,URINE NEGATIVE (NEGATIVE); LEUKOCYTE ESTERASE ,URINE NEGATIVE (NEGATIVE); NITRITES,URINE NEGATIVE (NEGATIVE); PROTEIN,URINE NEGATIVE (NEGATIVE); UROBILINOGEN,URINE NORMAL (NORMAL)
[2017-02-09 12:54] LABS: APPEARANCE,URINE CLEAR (CLEAR); BACTERIA,URINE NEGATIVE /HPF (NEGATIVE); COLOR,URINE YELLOW (YELLOW); RBC,URINE NONE SEEN /HPF (NEGATIVE); SQUAMOUS EPITHELIAL CELL,UR RARE /HPF (NEGATIVE)
== END 2017-02-09 13:16 | disposition home or self-care (01) ==
LOC: ER 11:39
DX: G43.909 Migraine, unspecified, not intractable, without status migrainosus (principal); R53.1 Weakness; R73.9 Hyperglycemia, unspecified
CPT/HCPCS: 36415; 80053; 81001; 82009; 85025; 96372; 99282; J1885

== ENCOUNTER 2017-02-12 10:04 | Emergency (ER) | payer SELFPAY ==
[2017-02-12 10:10] VITALS: BP 124/75; BMI 36.8
[2017-02-12] MEDS ORDERED: NS 1000 ML 1,000 ML ONE (10:54)
--- NOTE | 2017-02-12 10:54 | DR.GENAD ---
HPI - PCP Primary Care Physician: ROCÍO MCDONOUGH - Complaint/Symptoms Chief Complaint Doctors Comments: Patient states that she started feeling bad this weekend. 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, 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 - Family History History of Family Medical Conditions: Yes Family Medical History: Diabetes Mellitus, Cancer, [place], Hypertension - Social History Does patient currently use any type of tobacco product: No Have you used tobacco products in the last 12 months: No Type of Tobacco Use: None Does any household member use tobacco: No Alcohol Use: None Do you use any recreational Drugs:: No Lives With: Family Lives Where: Home - infectious screening In the last 2 months have you had wt loss of >10#?: NO Have you had fever, night sweats or hemotysis?: No Have you traveled outside the country in the last 6 months?: No Isolation: Standard ROS - Review of Systems Constitutional: Chills, Malaise, Weakness Eyes: No Symptoms Reported ENTM: No Symptoms Reported Respiratoy: No Symptoms Reported Cardiovascular: No Symptoms Reported Gastrointestinal/Abdominal: No Symptoms Reported Genitourinary: No Symptoms Reported Neurological: Weakness, Dizziness Musculoskeletal: Muscle Pain Integumentary: No Symptoms Reported Hematologic/Lymphatic: No Symptoms Reported Endocrine: No Symptoms Reported Psychiatric: No Symptoms Reported All Other Systems: Reviewed and Negative PE - Vital Signs Vitals: Temperature 98.8 F Pulse Rate 114 Respiratory Rate 22 Blood Pressure 124/75 O2 Sat by Pulse Oximetry 95 - General Limitations: No Limitations General Appearance: Alert, In No Apparent Distress - Head Head Exam: Normal Inspection, Atraumatic - Eyes Eye exam: Normal Appearance, PERRL, EOMI, Scleral Icterus - ENT ENT Exam: Normal Exam External Ear Exam: Normal External Inspection TM/Canal Exam: Bilateral Normal Nose Exam: Normal Nose Exam Mouth Exam: Normal Inspection Throat Exam: Normal Inspection - Neck Neck Exam: Normal Inspection, Full ROM - Chest Chest Inspection: Normal Inspection - Respiratory Respiratory Exam: Normal Lung Sounds Bilat Respiratory Exam: Bilateral Clear to Auscultation - Cardiovascular Cardiovascular Exam: Regular Rate, Systolic Murmur - Abdominal Exam Abdominal Exam: Normal Inspection, Normal Bowel Sounds Abdominal Tenderness: negative: RUQ, RLQ, LUQ, LLQ, Epigastrium, Suprapubic, Diffuse, Mild, Moderate, Severe, Other - Extremities Extremities Exam: Normal Inspection, Full ROM - Back Back Exam: Normal Inspection, Full ROM - Neurologic Neurological Exam: Alert, Oriented X3, CN II-XII Intact - Psychiatric Psychiatric Exam: Normal Affect, Normal Mood - Skin Skin Exam: Warm, Dry, Intact Course - Reevaluation 1st: Improved - Education/Counseling Education/Counseling: Patient Educated On: Treatment, Diagnosis, Prognosis ROR - Labs Reviewed Laboratory Results Reviewed?: Yes (Influenza A) Result Diagrams: 02/12/17 11:20 02/12/17 11:20 Laboratory: WBC 4.0 X10^3/uL (3.6-10.0) 02/12/17 11:20 RBC 4.04 X10^6/uL (3.5-5.4) 02/12/17 11:20 Hgb 11.5 g/dL (12.0-16.0) L 02/12/17 11:20 Hct 34.4 % (36.0-47.0) L 02/12/17 11:20 MCV 85.3 fL (80.0-100.0) 02/12/17 11:20 MCH 28.5 pg (27.0-34.0) 02/12/17 11:20 MCHC 33.4 g/dL (33.0-35.0) 02/12/17 11:20 RDW 15.3 % (11.6-16.5) 02/12/17 11:20 Plt Count 157 X10^3/uL (150.0-450.0) 02/12/17 11:20 MPV 9.1 fL (7.4-11.0) 02/12/17 11:20 Neut % 52.4 % (42.0-75.0) 02/12/17 11:20 Lymph % 17.0 % (21.0-51.0) L 02/12/17 11:20 [place] % 27.0 % (0.0-13.0) H 02/12/17 11:20 Eos % 3.0 % (0.9-2.9) H 02/12/17 11:20 Baso % 0.6 % (0.2-1.0) 02/12/17 11:20 Neut # 2.1 x10^3/uL (2.2-4.8) L 02/12/17 11:20 Lymph # 0.7 X10^3/uL (1.3-2.9) L 02/12/17 11:20 [place] # 1.1 x10^3/uL (0.3-0.8) H 02/12/17 11:20 Eos # 0.1 x10^3/uL (0.0-0.2) 02/12/17 11:20 Baso # 0.0 X10^3/uL (0.0-0.1) 02/12/17 11:20 Absolute Nucleated RBC 0.1 /100WBC 02/12/17 11:20 Sodium 140 mmol/L (136-145) 02/12/17 11:20 Corrected Sodium 141 mmol/L (136-145) 02/12/17 11:20 Potassium 4.1 mmol/L (3.5-5.1) 02/12/17 11:20 Chloride 105 mmol/L (98-107) 02/12/17 11:20 Carbon Dioxide 23.3 mmol/L (21-32) 02/12/17 11:20 BUN 7 mg/dL (7-18) 02/12/17 11:20 Creatinine 0.84 mg/dL (0.55-1.02) 02/12/17 11:20 Est GFR (MDRD) Af Amer > 60 (>60) 02/12/17 11:20 Est GFR (MDRD) Non-Af > 60 (>60) 02/12/17 11:20 Glucose 128 mg/dL (65-99) H 02/12/17 11:20 Calcium 9.1 mg/dL (8.5-10.1) 02/12/17 11:20 Corrected Calcium TNP 02/12/17 11:20 Total Bilirubin 0.20 mg/dL (0.2-1.0) 02/12/17 11:20 AST 80 Units/L (15-37) H 02/12/17 11:20 ALT 101 Units/L (12-78) H 02/12/17 11:20 Alkaline Phosphatase 98 Units/L (46-116) 02/12/17 11:20 C-Reactive Protein 67.10 mg/L (0-3.0) H 02/12/17 11:20 Total Protein 7.7 g/dL (6.4-8.2) 02/12/17 11:20 Albumin 3.6 g/dL (3.4-5.0) 02/12/17 11:20 Globulin 4.1 g/dL (2.5-4.5) 02/12/17 11:20 Albumin/Globulin Ratio 0.9 Ratio (1.1-2.1) L 02/12/17 11:20 Specimen Type Clean catch urine 02/12/17 11:01 Urine Color Yellow (YELLOW) 02/12/17 11:01 Urine Appearance Clear (CLEAR) 02/12/17 11:01 Urine pH 6.0 (5.0 - 8.0) 02/12/17 11:01 Ur Specific [place] 1.015 (1.000-1.030) 02/12/17 11:01 Urine Protein Negative (NEGATIVE) 02/12/17 11:01 Urine Glucose (UA) Negative (NEGATIVE) 02/12/17 11:01 Urine Ketones Negative (NEGATIVE) 02/12/17 11:01 Urine Occult Blood Negative (NEGATIVE) 02/12/17 11:01 Urine Nitrite Negative (NEGATIVE) 02/12/17 11:01 Urine Bilirubin Negative (NEGATIVE) 02/12/17 11:01 Urine Urobilinogen Normal (NORMAL) 02/12/17 11:01 Ur Leukocyte Esterase Negative (NEGATIVE) 02/12/17 11:01 Urine RBC None seen /HPF (NEGATIVE) 02/12/17 11:01 Urine WBC None seen /HPF (NEGATIVE) 02/12/17 11:01 Ur Squamous Epith Cells Moderate /HPF (NEGATIVE) 02/12/17 11:01 Urine Bacteria Negative /HPF (NEGATIVE) 02/12/17 11:01 Ur Culture Indicated? No/not indicated 02/12/17 11:01 Influenza Type A (PCR) Positive (NEGATIVE) A 02/12/17 11:04 Influenza Type B (PCR) Negative (NEGATIVE) 02/12/17 11:04 Streptococcus Screen Negative (NEGATIVE) 02/12/17 11:06 - Diagnosis Discharge Problem: Influenza A - Discharge Plan Condition: Stable - Follow ups/Referrals Follow ups/Referrals: Timoteo Tello [Primary Care Provider] - 3 days - Instructions
[2017-02-12] MEDS ORDERED: NS 1000 ML 1,000 ML IV ONE (10:55)
[2017-02-12 11:13] LABS: BILIRUBIN,URINE NEGATIVE (NEGATIVE); BLOOD/HEMOGLOBIN,URINE NEGATIVE (NEGATIVE); GLUCOSE, URINE NEGATIVE (NEGATIVE); KETONES,URINE NEGATIVE (NEGATIVE); LEUKOCYTE ESTERASE ,URINE NEGATIVE (NEGATIVE); NITRITES,URINE NEGATIVE (NEGATIVE); PROTEIN,URINE NEGATIVE (NEGATIVE); UROBILINOGEN,URINE NORMAL (NORMAL)
--- NOTE | 2017-02-12 11:15 | RAD ---
Examination: Portable AP chest History: 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, fever Comparison reference: 11/03/2016 Findings: Continued normal heart size with essentially clear lungs. There is now identified slight ap parent elevation of the right hemidiaphragm. There is no evidence for pleural fluid or pneumothorax. Impression: Slight nonspecific elevation of right hemidiaphragm since prior study. Negative otherwise . Reported By:
[2017-02-12] MEDS ORDERED: TORADOL 30 MG VIAL IVP ONE (11:19)
[2017-02-12] MEDS ORDERED: TORADOL 30 MG VIAL ONE (11:20)
[2017-02-12 11:35] LABS: BASOPHILS % (AUTO) 0.6 % (0.2-1.0); EOSINOPHILS # (AUTO) 0.1 x10^3/uL (0.0-0.2); HEMATOCRIT 34.4 % (36.0-47.0); HEMOGLOBIN 11.5 g/dL (12.0-16.0); LYMPHOCYTES # (AUTO) 0.7 X10^3/uL (1.3-2.9); MEAN CORPUSCULAR HEMOGLOBIN 28.5 pg (27.0-34.0); MEAN CORPUSCULAR HGB CONC 33.4 g/dL (33.0-35.0); MEAN CORPUSCULAR VOLUME 85.3 fL (80.0-100.0); MEAN PLATELET VOLUME 9.1 fL (7.4-11.0); MONOCYTES # (AUTO) 1.1 x10^3/uL (0.3-0.8); NEUTROPHILS # (AUTO) 2.1 x10^3/uL (2.2-4.8); NEUTROPHILS % (AUTO) 52.4 % (42.0-75.0); PLATELET COUNT 157 X10^3/uL (150.0-450.0); RED BLOOD COUNT 4.04 X10^6/uL (3.5-5.4); RED CELL DISTRIBUTION WIDTH 15.3 % (11.6-16.5)
[2017-02-12 11:37] LABS: APPEARANCE,URINE CLEAR (CLEAR); COLOR,URINE YELLOW (YELLOW)
[2017-02-12 11:38] LABS: BACTERIA,URINE NEGATIVE /HPF (NEGATIVE); RBC,URINE NONE SEEN /HPF (NEGATIVE); SQUAMOUS EPITHELIAL CELL,UR MODERATE /HPF (NEGATIVE)
[2017-02-12 11:43] LABS: ALANINE AMINOTRANSFERASE 101 Units/L (12-78); ALBUMIN 3.6 g/dL (3.4-5.0); ALKALINE PHOSPHATASE 98 Units/L (46-116); ASPARTATE AMINO TRANSFERASE 80 Units/L (15-37); BLOOD UREA NITROGEN 7 mg/dL (7-18); CALCIUM 9.1 mg/dL (8.5-10.1); CARBON DIOXIDE 23.3 mmol/L (21-32); CHLORIDE 105 mmol/L (98-107); COR NA(FOR HYPERGLY) 141 mmol/L (136-145); CREATININE 0.84 mg/dL (0.55-1.02); SODIUM 140 mmol/L (136-145); TOTAL PROTEIN 7.7 g/dL (6.4-8.2); eGFR BLACK RACES > 60 (>60); eGFR NON BLACK RACES > 60 (>60)
[2017-02-12 12:02] LABS: BAND NEUTROPHILS % 10 % (0-10); PLATELET MORPHOLOGY COMMENT NORMAL (NORMAL)
== END 2017-02-12 12:14 | disposition home or self-care (01) ==
LOC: ER 10:14
DX: J11.1 Influenza due to unidentified influenza virus with other respiratory manifestations (principal)
CPT/HCPCS: 36415; 71010; 80053; 81001; 85025; 86140; 87070; 87502; 87880; 96365; 96374; 99282; 99283; A4222; J1885

== ENCOUNTER 2017-04-16 16:28 | Emergency (ER) | payer SELFPAY ==
[2017-04-16 16:34] VITALS: BP 127/70; BMI 39.6
[2017-04-16] MEDS ORDERED: DEMEROL INJ IM ONE (17:36)
[2017-04-16] MEDS ORDERED: PHENERGAN INJ 25 MG IM ONE (17:36)
--- NOTE | 2017-04-16 17:36 | DR.HEADACH ---
HPI - Time Seen Time seen: 17:30 - Primary Care Physician Primary Care Physician: ROCÍO - HPI Comment HPI Comment: HISTORY BELOW. - Complaint/Symptoms Chief Complaint Doctors Comments: HEADACHE WITH N/V AND PHOTOPHOBIA. HISTORY POST TRAUMATIC MIGRAINE HEADACHE. NO NEW TRAUMA. Chief Complaint:: RIGHT OCCIPITAL HEADACHE Pertinent History: Back Pain, Headache, Nausea/Vomitting. denies: Neck Pain Self Treatment fo Chief Complaint: MOTRIN, TYLENOL, MAXALL - Reviewed Nurses Notes Reviewed: Yes - Source History Provided: Patient - Mode of Arrival Mode of Arrival: Ambulatory - Timing Onset of Chief Complaint: 04/02/17 - Duration Since Onset: Constant Duration: Days - Location Headache Location: Generalized - Quality Quality: Throbbing - Severity Headache Severity: Severe - Context Headache Onset Circumstances: Spontaneous History of: None Prior Work Up: CT - Modifying Factors Improves With: Nothing Worsens: Nothing - Associated Signs and Symptoms Associated Symptoms: Nausea, Vomitting, Photophobia Aura: denies: Visual, Sensory, Motor, Mood PMH - PMH Past Medical History: Yes Past Medical History: Anxiety, Depression, Diabetes, Dyslipidemia, Headaches Past Medical History Comment: FIBROMYALGIA Past Surgical History: Yes 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, 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, 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: No Have you traveled outside the country in the last 6 months?: No Isolation: Standard ROS - Review of Systems Constitutional: No Symptoms Reported Eyes: No Symptoms Reported ENTM: No Symptoms Reported Respiratoy: No Symptoms Reported Cardiovascular: No Symptoms Reported Gastrointestinal/Abdominal: Nausea, Vomiting Genitourinary: No Symptoms Reported Neurological: Headache. negative: Weakness, Dizziness Musculoskeletal: No Symptoms Reported Integumentary: No Symptoms Reported Hematologic/Lymphatic: No Symptoms Reported Endocrine: No Symptoms Reported All Other Systems: Reviewed and Negative PE - Vital Signs Vitals: Temperature 97.3 F Pulse Rate 82 Respiratory Rate 20 Blood Pressure 127/70 O2 Sat by Pulse Oximetry 99 - General Limitations: No Limitations General Appearance: Alert - Head Head Exam: Normal Inspection - Eyes Eye exam: Normal Appearance Eyelids: Normal Inspection: Bilateral Pupils: Regular, Round: Bilateral, Reactive: Bilateral Sclera/Conjunctival: Normal Inspection: Bilateral - ENT ENT Exam: Normal Exam External Ear Exam: Normal External Inspection TM/Canal Exam: Bilateral Normal Nose Exam: Normal Nose Exam Mouth Exam: Normal Inspection Teeth Exam: Normal Inspection Throat Exam: Normal Inspection - Neck Neck Exam: Trachea Midline - Chest Chest Inspection: Symmetric Chest Wall Rise - Respiratory Respiratory Exam: Normal Lung Sounds Bilat Respiratory Exam: Bilateral Clear to Auscultation - Cardiovascular Cardiovascular Exam: Regular Rate, Normal Rhythm, Normal Heart Sounds - Abdominal Exam Abdominal Exam: Normal Bowel Sounds, Soft. negative: Tenderness - Extremities Extremities Exam: Normal Inspection - Back Back Exam: Normal Inspection - Neurologic Neurological Exam: Alert, Oriented X3 - Psychiatric Psychiatric Exam: Normal Affect, Normal Mood - Skin Skin Exam: Normal Color MDM - Differential Diagnosis Differential Diagnosis: Considerations may include:: Cluster, Migraine, Sinusitis Course - Treatment Treatment: SEE ORDERS. - Education/Counseling Education/Counseling: Patient, Education Educated On: Treatment, Diagnosis, Needs for Follow Up - Diagnosis Discharge Problem: Migraine headache Qualifiers: Migraine type: with aura Status migrainosus presence: without status migrainosus Intractability: intractable Qualified Code(s): G43.119 - Migraine with aura, intractable, without status migrainosus - Discharge Plan Disposition: 01 HOME, SELF-CARE Condition: Stable Prescriptions: Vjpqlavslz-Ngso-Ejkosofs [Fioricet Tab] 1 tab PO Q8H PRN #30 tab PRN Reason: Migraine Headache Ondansetron [Zofran ODT 8 mg] 8 mg PO Q8H PRN #12 tab PRN Reason: Nausea/Vomiting - Follow ups/Referrals Follow ups/Referrals: Timoteo Tello [Primary Care Provider] - 3 days - Instructions Instructions: Migraine Headache, [id number] Additional Instructions: RETURN TO ED IF WORSE.
[2017-04-16] MEDS ORDERED: PHENERGAN INJ 25 MG ONE (17:54)
[2017-04-16] MEDS ORDERED: DEMEROL INJ ONE (17:54)
== END 2017-04-16 18:12 | disposition home or self-care (01) ==
LOC: ER 16:41
DX: G43.119 Migraine with aura, intractable, without status migrainosus (principal)
CPT/HCPCS: 96372; 99282; J2175; J2550